=== PATIENT | male | born 1980 | race Caucasian/White ===

== ENCOUNTER 2019-10-31 13:15 | Inpatient (IN) | payer BC ==
--- NOTE | 2019-10-31 13:24 | PDOC ---
Rapid Medical Evaluation Time Seen by Provider: 10/31/19 13:17 Medical Evaluation: Allergies Allergy/AdvReac Type Severity Reaction Status Date / Time No Known Drug Allergies Allergy Verified 03/06/14 03:24 10/31/19 13:19 CC: increasing sob x 10 days, hx factor V and dvt. + chest tightness. 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
--- NOTE | 2019-10-31 13:30 | PDOC ---
History of Present Illness - General Chief Complaint: Shortness of Breath Stated Complaint: SOB Time Seen by Provider: 10/31/19 13:17 - History of Present Illness Initial Comments: 10/31/19 13:30 39 y/o afebrile male with PMH Factor V Leiden (on warfarin), > 10x of DVTs in the LLE (follows with Dr. George) presents with 10 days of worsening shortness of breath, and dry cough with occasional post tussive emessis. The shortness of breath have worsened so he came to the ER. Denies chest pain. Denies recent travel, surgery ROS GENERAL/CONSTITUTIONAL: No fever or chills. No weakness. HEAD, EYES, EARS, NOSE AND THROAT: No change in vision. No ear pain or discharge. No sore throat. CARDIOVASCULAR: No chest pain + shortness of breath RESPIRATORY: No cough, wheezing, or hemoptysis. GASTROINTESTINAL: No nausea, vomiting, diarrhea or constipation. GENITOURINARY: No dysuria, frequency, or change in urination. MUSCULOSKELETAL: No joint or muscle swelling or pain. No neck or back pain. SKIN: No rash NEUROLOGIC: No headache, vertigo, loss of consciousness, or change in strength/sensation. ENDOCRINE: No increased thirst. No abnormal weight change HEMATOLOGIC/LYMPHATIC: No anemia, easy bleeding, or history of blood clots. ALLERGIC/IMMUNOLOGIC: No hives or skin allergy. PE GENERAL: Awake, alert, and fully oriented, in no acute distress HEAD: No signs of trauma, normocephalic, atraumatic EYES: EOMI, sclera anicteric, conjunctiva clear ENT: oropharynx clear without exudates. Moist mucosa NECK: Normal ROM, supple LUNGS: No distress, speaks full sentences, clear to auscultation bilaterally HEART: Regular rate and rhythm, normal S1 and S2, no murmurs, rubs or gallops, peripheral pulses normal and equal bilaterally. ABDOMEN: Soft, nontender. No guarding, no rebound. No masses EXTREMITIES : Normal inspection, Normal range of motion, no edema. No clubbing or cyanosis. NEUROLOGICAL: Cranial nerves II through XII grossly intact. Normal speech, normal gait, no focal sensorimotor deficits SKIN: Warm, Dry, normal turgor, no rashes or lesions noted Assessment and Plan 39 y/o afebrile male with PMH Factor V Leiden (on warfarin), > 10x of DVTs in the LLE (follows with Dr. George) presents with 10 days of worsening shortness of breath, and dry cough with occasional post tussive emessis. Consider PE vs acs vs infectious - cbc, cmp, coags, ekg, cxr, CTA chest EKG: sinus tachycardia at 131bpm, wide complex, L axis, QTc 440 See attending discusssion wthi Dr. Gonzalez (cardiology), recommends adenosine to slow and identify rhythm Patinet given adenosine 6, 12,12 without change in rhythm Discussed case with Dr. Feldman who recommends trial of amiodarone Patient given Amiodarone without change in HR or rhythm CTA: No CT evidence of pulmonary embolism. Multichamber cardiomegaly is noted with interstitial pulmonary vascular congestion. Right middle lobe and right lower lobe alveolar opacities are seen which could be due to asymmetric pulmonary edema versus bacterial infiltrates. COVID-19 pneumonitis is less likely given peripheral sparing and an alveolar appearance rather than a typical groundglass appearance. Correlate clinically and with close follow-up radiography or CT. Mild nonspecific mediastinal and bilateral hilar lymphadenopathy is seen. Correlate clinically and with 3 month follow-up CT to document stability. Azithro and Ceftriaxone dosed Discussed case with Dr. Brunson who accepts pt for admission Jenniffer Cowart, PGY2 Emergency Medicine Past History - Medical History Allergies/Adverse Reactions: Allergies Allergy/AdvReac Type Severity Reaction Status Date / Time No Known Drug Allergies Allergy Verified 10/31/19 13:20 Home Medications: Ambulatory Orders Warfarin Sodium [Coumadin] 12 mg PO DAILY 03/08/12 Multivitamin [Multivitamins] 1 each PO DAILY 10/26/12 Anemia: No Asthma: No Cancer: No Cardiac Disorders: No CVA: No COPD: No CHF: No Dementia: No Diabetes: No GI Disorders: No Disorders: No HTN: No Hypercholesterolemia: No Liver Disease: No Seizures: No Thyroid Disease: No Other medical history: FACTOR V, DVT - Surgical History Abdominal Surgery: No Appendectomy: No Cardiac Surgery: No Cholecystectomy: No Lung Surgery: No Neurologic Surgery: No Orthopedic Surgery: Yes (rt knee sx, lt shoulder sx;rt hip sx) - Immunization History Immunization Up to Date: Yes - Psycho-Social/Smoking History Smoking Status: No Smoking History: Former smoker Have you smoked in the past 12 months: No Number of Cigarettes Smoked Daily: 10 Information on smoking cessation initiated: No 'Breaking Loose' booklet given: 10/24/11 - Substance Abuse Hx (Audit-C & DAST Scrn) How often the patient has a drink containing alcohol: Never Score: In Men: 4 or > Positive; In Women: 3 or > Positive: 0 Screen Result (Pos requires Nsg. Audit-10AR): Negative In the last yr the pt used illegal drug/Rx for NonMed reason: No Score: Yes response is considered Positive: 0 Screen Result (Positive result requires Nsg. DAST-10): Negative *Physical Exam - Vital Signs Last Vital Signs Temp Pulse Resp BP Pulse Ox 98.2 F 95 H 22 H 126/85 98 10/31/19 13:21 10/31/19 13:21 10/31/19 13:21 10/31/19 13:21 10/31/19 13:21 ED Treatment Course - LABORATORY CBC & Chemistry Diagram: 10/31/19 13:45 10/31/19 13:45 Discharge - Discharge Information Problems reviewed: Yes Clinical Impression/Diagnosis: Shortness of breath - Follow up/Referral - Patient Discharge Instructions - Post Discharge Activity
[2019-10-31] MEDS ORDERED: ADENOSINE 6 MG/2 ML VIAL IVPUSH ONE ×5 (14:18→14:46)
[2019-10-31 14:23] LABS: BASO % 1.2 % (0-2.0); EOS % 0.7 % (0-4.5); HEMATOCRIT 42.1 % (35.4-49); HEMOGLOBIN 13.8 GM/dL (11.7-16.9); LYMPH % 20.3 % (8-40); MCH 28.8 pg (25.7-33.7); MCHC 32.7 g/dl (32.0-35.9); MEAN PLT VOLUME 8.4 fl (7.5-11.1); MONO % 6.9 % (3.8-10.2); NEUT % 70.9 % (42.8-82.8); PLATELET COUNT 385 K/MM3 (134-434); RBC 4.78 M/mm3 (4.00-5.60); RDW 13.4 % (11.9-15.9); WHITE BLOOD COUNT 8.8 K/mm3 (4.0-10.0)
[2019-10-31 14:36] LABS: INR 3.99 (0.83-1.09); PROTHROMBIN TIME (PATIENT) 47.8 SEC (9.7-13.0)
[2019-10-31 14:50] LABS: ALBUMIN 3.5 g/dl (3.4-5.0); BILIRUBIN,TOTAL 1.3 mg/dL (0.2-1); BLOOD UREA NITROGEN 10.6 mg/dL (7-18); CALCIUM 9.3 mg/dL (8.5-10.1); CREATININE 0.9 mg/dL (0.55-1.3); MAGNESIUM 1.8 mg/dL (1.8-2.4); POTASSIUM 4.1 mmol/L (3.5-5.1); TOT PROT 6.9 g/dl (6.4-8.2)
[2019-10-31] MEDS ORDERED: AMIODARONE HCL 150 MG/3 ML VIAL IVPUSH ONE (15:03)
[2019-10-31 15:25] LABS: N-TERMINAL BNP 1695.9 pg/ml (5-125)
[2019-10-31] MEDS ORDERED: AMIODARONE HCL 150 MG/3 ML VIAL ONE (15:54)
[2019-10-31] MEDS ORDERED: AZITHROMYCIN IVPB 500 MG in DEXTROSE 5%-WATER - 250 ML IVPB ONE (16:31)
[2019-10-31] MEDS ORDERED: CEFTRIAXONE 1 GM/50 ML BAG ONE (16:38)
[2019-10-31] MEDS ORDERED: AZITHROMYCIN IVPB 500 MG/250 ML BAG IVPB ONE (16:39)
--- NOTE | 2019-10-31 16:50 | PDOC ---
Documentation entered by Wilfrido Negron SCRIBE, acting as scribe for Jamal Gill MD. Jamal Gill MD: This documentation has been prepared by the Migdalia ayala Xhesika, SCRIBE, under my direction and personally reviewed by me in its entirety. I confirm that the documentation accurately reflects all work, treatment, procedures, and medical decision making performed by me. Attending Attestation - Resident Resident Name: Jenniffer Cowart - ED Attending Attestation I have performed the following: I have examined & evaluated the patient, The case was reviewed & discussed with the resident, I agree w/resident's findings & plan, Exceptions are as noted - HPI HPI: 10/31/19 13:57 The patient is a 39 y/o M with a PMH of Factor V Leiden (on warfarin), > 10x of DVTs in the LLE (follows with Dr. George) who presents to the ED with 10 days of worsening shortness of breath, and dry cough. Pt states his SOB has gotten worse, prompting his arrival to the ED. The patient denies chest pain and dizziness. Denies fever, chills, nausea, vomiting, and constipation. Denies dysuria, frequency, urgency and hematuria. Allergy: NKDA - Physicial Exam PE: 10/31/19 14:03 Vitals: Triage Vital signs reviewed General Appearance: no acute distress, well nourished well developed, Neck: Supple;No Nuchal rigidity Chest Wall: Nontender Cardiac: +tachy. no murmurs, no rubs, no gallops, Lungs: Clear to auscultation bilateral, good air movement bilaterally, Abdomen: Soft, nondistended, normal bowel sounds, nontender to palpation Extremities: Full range of motion to all extremities, no cyanosis, clubbing, or edema Skin: Warm and dry, no rashes or lesions, no petechiae Psych: normal mood, normal affect - Critical Care Time Total Critical Care Time: 35 Critical Care Statement: The care of this patient involved high complexity decision making to prevent further life threatening deterioration of the pa tient's condition and/or to evaluate & treat vital organ system(s) failure or risk of failure. - Medical Decision Making 10/31/19 16:48 39 y/o M with a PMH of Factor V Leiden (on warfarin), > 10x of DVTs in the LLE (follows with Dr. George) who presents to the ED with 10 days of worsening shortness of breath, and dry cough. EKG demonstrates tachycardia fixed rate 128 likely P waves however wide complex in nature adenosine given x3 with no change Cardiology has been consulted Decision made to avoid calcium channel blockers and beta-blockers given wide-complex dysrhythmia Case discussed with cardiology recommends amiodarone 150 CTA demonstrates cardiomegaly right middle lobe and right lower lobe alveolar opacities less likely groundglass opacities Given atrial tachycardia versus a flutter which did not break with adenosine which is wide-complex in nature patient require admission for cardiology consultation, Dr. Feldman Recommends amiodarone and admission for further management. Discharge - Discharge Information Problems reviewed: Yes Clinical Impression/Diagnosis: Shortness of breath Condition: Guarded Disposition: [facility] - Follow up/Referral - Patient Discharge Instructions - Post Discharge Activity
[2019-10-31 17:05] LABS: EPI CELLS 3 /uL (0-25.1); HYALINE CASTS 1 /uL (0-3.1); PH,URINE 5.5 (5.0-8.0); URINE APPEARANCE CLEAR; URINE BACTERIA 17 /uL (0-1359); URINE BILIRUBIN NEGATIVE (NEGATIVE); URINE COLOR YELLOW; URINE GLUCOSE (UA) NEGATIVE (NEGATIVE); URINE KETONE NEGATIVE (NEGATIVE); URINE LEUK ESTERASE NEGATIVE (NEGATIVE); URINE NITRITE NEGATIVE (NEGATIVE); URINE PROTEIN 3+ (NEGATIVE); URINE RBC 70 /uL (0-23.9); URINE UROBILINOGEN 0.2 mg/dL (0.2-1.0); URINE WBC 7 /uL (0-25.8)
[2019-10-31 18:21] LABS: COCAINE, UR NEGATIVE ng/ml (CUTOFF=300); METHADONE, UR NEGATIVE ng/ml (CUTOFF=300); OPIATES, URI NEGATIVE ng/ml (CUTOFF=300); PHENCYCLIDINE,URINE NEGATIVE ng/ml (CUTOFF=25); URINE AMPHETAMINES NEGATIVE ng/ml (CUTOFF=500); URINE BARBITURATES NEGATIVE ng/ml (CUTOFF=200)
[2019-10-31 18:24] LABS: URINE BENZODIAZEPINES NEGATIVE ng/ml (CUTOFF=200)
--- NOTE | 2019-10-31 18:51 | HP ---
Admitting History and Physical - Admission Chief Complaint: Acute shortness of breath and tightness in the chest History of Present Illness: This 84 yr old w/m with PMH of factor V Leiden (on warfarin), >10x DVT of the left lower leg admitted via ER with an acute shortness of breath, tightness in the chest, and dry cough which have been gradually getting worse for past 10 days. 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: No: Alzheimer's, CVA, Dementia, Migraine, Multiple Sclerosis, Peripheral Neuropathy, Parkinson's, Seizure, Syncope, TIA, Vertigo, Other Cardiovascular: Yes: Other (atrial flutter with 2:1 AV conduction) Pulmonary: No: Asthma, Bronchitis, Cancer, COPD, O2 Dependent, Pneumonia, Previously Intubated, Pulmonary Embolus, Pulmonary Fibrosis, Sleep Apnea, Other Gastrointestinal: No: Ascites, Cancer, Constipation, Crohn's Disease, Diver ticulitis, Diverticulosis, Esophageal Varices, Gastritis, GERD, GI Bleed, Hemorrhoids, Hiatal Hernia, Inflamatory Bowel Disease, Irritable Bowel Disease, Pancreatitis, Peptic Ulcer Disease, Ulcerative Colitis, Other Hepatobiliary: No: Cirrhosis, Cholelithiasis, Cholecystitis, Choledocholithiasis, Hepatitis A, Hepatitis B, Hepatitis C, Other Renal/: Yes: Renal Calculi Heme/Onc: Yes: Hypercoaguable State (Factor V Leiden) Infectious Disease: No: AIDS, C-Diff, Herpes Zoster, HIV, MRSA, STD's, Tub erculosis, VREF, Other Psych: No: Addictions, Anxiety, Bipolar, Depression, Panic, Psychosis, Schizophrenia, Other Rheumatology: No: Fibromyalgia, Gout, Lupus, Rheumatoid Arthritis, Sarcoidosis, Vasculitis, Other ENT: No: Allergic Rhinitis, Sinusitis, Other Endocrine: No: Genaro's Disease, Kristy's Disease, Diabetes Insipidus, Diabetes Mellitus, Hyperparathyroidism, Hyperthyroidism, Hypothyroidism, Osteopenia, SIADH, Other Dermatology: No: Basal Cell, Cellulitis, Eczema, Melanoma, Psoriasis, Squamous Cell, Other - Past Surgical History Past Surgical History: Yes: None - Smoking History Smoking history: Former smoker Have you smoked in the past 12 months: No Aproximately how many cigarettes per day: 10 - Alcohol/Substance Use Hx Alcohol Use: No - Social History Usual Living Arrangement: Yes: With Spouse Home Medications - Allergies Allergies/Adverse Reactions: Allergies Allergy/AdvReac Type Severity Reaction Status Date / Time No Known Drug Allergies Allergy Verified 10/31/19 13:20 - Home Medications Home Medications: Ambulatory Orders Warfarin Sodium [Coumadin] 12 mg PO DAILY 03/08/12 Multivitamin [Multivitamins] 1 each PO DAILY 10/26/12 Review of Systems - Review of Systems Constitutional: reports: No Symptoms Eyes: reports: No Symptoms HENT: reports: No Symptoms Neck: reports: No Symptoms Cardiovascular: reports: Palpitations, Other Respiratory: reports: Cough Gastrointestinal: reports: No Symptoms Genitourinary: reports: No Symptoms Breasts: reports: No Symptoms Reported Musculoskeletal: reports: No Symptoms Integumentary: reports: No Symptoms Neurological: reports: No Symptoms Endocrine: reports: No Symptoms Hematology/Lymphatic: reports: No Symptoms Psychiatric: reports: Anxiety Physical Examination Vital Signs: Vital Signs Temperature 98.2 F 10/31/19 13:21 Pulse Rate 128 H 10/31/19 16:07 Respiratory Rate 22 H 10/31/19 16:07 Blood Pressure 123/79 10/31/19 16:07 O2 Sat by Pulse Oximetry (%) 95 10/31/19 16:07 Constitutional: Yes: Well Nourished, Anxious, Mild Distress Eyes: Yes: Conjunctiva Clear, EOM Intact HENT: Yes: Atraumatic, Normocephalic Neck: Yes: Supple, Trachea Midline Cardiovascular: Yes: Pulse Irregular (atrial flutter) Respiratory: Yes: Regular, CTA Bilaterally, On Nasal O2 Gastrointestinal: Yes: Normal Bowel Sounds, Soft ...Rectal Exam: Yes: Deferred Renal/: Yes: WNL Breast(s): Yes: WNL Extremities: Yes: Other (DVT left lower leg) Edema: No Peripheral Pulses WNL: Yes Integumentary: Yes: WNL Neurological: Yes: WNL ...Motor Strength: WNL Psychiatric: Yes: Alert, Oriented Labs: CBC, BMP 10/31/19 13:45 10/31/19 13:45 Imaging - Results Chest X-ray: Report Reviewed Cat Scan: Report Reviewed EKG: Report Reviewed Other: Report Reviewed (lab data reviewed) Problem List - Problems (1) Tightness in chest Code(s): R07.89 - OTHER CHEST PAIN (2) Dry cough Code(s): R05 - COUGH (3) Factor V Leiden Code(s): D68.51 - ACTIVATED PROTEIN C RESISTANCE (4) Left leg DVT Code(s): I82.402 - ACUTE EMBOLISM AND THOMBOS UNSP DEEP VEINS OF L LOW EXTREM (5) Atrial flutter with rapid ventricular response Code(s): I48.92 - UNSPECIFIED ATRIAL FLUTTER (6) Pneumonia Code(s): J18.9 - PNEUMONIA, UNSPECIFIED ORGANISM (7) Shortness of breath Code(s): R06.02 - SHORTNESS OF BREATH Assessment/Plan Assessment/plan: acute shortness of breath, acute tightness in the chest, acute dry cough, acute Pneumonia, acute atrial flutter with 2:1 AV conduction with rapid ventricular response 131bpm, Factor V Leiden, DVT of the left lower leg; Warfarin, oxygen 3L/min via nasal cannula with sp02 95%, consult to ID and Cardiology, IV Azithromycin and Ceftriaxone, IV Adenosine and IV amiodarone, oral Ativan for anxiety.
[2019-10-31] MEDS ORDERED: LORazepam 2 MG TABLET PO PRN (19:19)
[2019-10-31] MEDS ORDERED: LORazepam 2 MG/ML SDV VIAL ONE (19:26)
[2019-11-01] MEDS ORDERED: FUROSEMIDE 40 MG/4 ML INJECTABLE VIAL IVPUSH ONE ×2 (03:29→05:24)
--- NOTE | 2019-11-01 03:45 | CONSULT ---
Consultation: REQUESTING PROVIDER: Dr. Cortez CONSULT REQUEST: We have been asked to medically evaluate this patient for tachycardia. HISTORY OF PRESENT ILLNESS: 39 y/o M PMHx Factor V Leiden (on Warfarin), >10 DVT, ?AFlutter w/ 2:1 block presents with SOB and chest tightness x 10 days. 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 He continued to work and since onset, his SOB and tightness have worsened. he has tried his father in laws Albuterol inhaler and some OTC meds, both with minimal relief. Today, he felt his breathing was more labored prompting him to visit [facility]. Additionally complains of night sweats, posttussive emesis, fatigue, nonproductive cough. Denies any fevers, chills, diarrhea, constipation, headache, dysuria, hematuria. PMHx: As Above PSHX: Multiple orthopedic sx (Right knee x 13, Right Hip, Right Wrist, Left Shoulder), Multiple LLE Vascular sx (Follows with Dr. Ambrosio, Also had vessel removal), Left renal Calculi Allergies: NKDA FHx: Father with HTN, DM. Mother with HTN, DM, NAFLD Tobacco: 1ppd from ages [age]. 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 Ambulation: without assistance Residence: Home with and 4 year old child ED Course: Ativan 2mg x1, IV Adenosine (6mg followed by 12mg and again 12mg), IV Amiodarone 150mg, Ceftriaxone/Azithromycin REVIEW OF SYSTEMS: As per HPI PHYSICAL EXAMINATION Vital Signs - 24 hr 10/31/19 10/31/19 10/31/19 13:21 14:49 14:57 Temperature 98.2 F Pulse Rate 95 H Pulse Rate [ 129 H 129 H Apical] Pulse Rate [ Left Radial] Respiratory 22 H 17 17 Rate Blood Pressure 126/85 Blood Pressure 131/88 121/92 [Right Arm] O2 Sat by Pulse 98 99 99 Oximetry (%) 10/31/19 10/31/19 10/31/19 16:07 18:58 19:30 Temperature Pulse Rate Pulse Rate [ 128 H 128 H Apical] Pulse Rate [ 132 H Left Radial] Respiratory 22 H 22 H 24 H Rate Blood Pressure Blood Pressure 123/79 118/70 126/108 H [Right Arm] O2 Sat by Pulse 95 100 98 Oximetry (%) 10/31/19 10/31/19 11/01/19 21:30 23:30 01:30 Temperature Pulse Rate Pulse Rate [ Apical] Pulse Rate [ 130 H 128 H 92 H Left Radial] Respiratory 40 H 32 H Rate Blood Pressure Blood Pressure 107/77 124/75 93/83 [Right Arm] O2 Sat by Pulse 95 95 88 L Oximetry (%) 11/01/19 02:02 Temperature 98.6 F Pulse Rate Pulse Rate [ Apical] Pulse Rate [ 131 H Left Radial] Respiratory 28 H Rate Blood Pressure Blood Pressure 105/76 [Right Arm] O2 Sat by Pulse 97 Oximetry (%) GENERAL: A&Ox3, NAD HEAD: NCAT EYES: PERRL, EOMI ENT: Oropharynx clear without exudates. Moist mucous membranes. NECK: No JVD LUNGS: Diminished breath sounds at the bases, No wheezes, no crackles. HEART: Tachycardia, S1 S2 ABDOMEN: Obese, Soft, nontender, not distended, + bowel sounds, no guarding, no rebound MUSCULOSKELETAL: No CVA tenderness EXTREMITIES: No calf tenderness. LLE Chronic nonpitting edema. Multiple b/l LE surgical scars NEUROLOGICAL: Cranial nerves II-XII intact. Normal speech. Gross sensation intact throughout. 5/5 Muscle strength throughout. SKIN: Warm, dry Laboratory Results - last 24 hr 10/31/19 10/31/19 10/31/19 13:45 13:45 13:45 WBC 8.8 RBC 4.78 Hgb 13.8 Hct 42.1 MCV 88.0 MCH 28.8 MCHC 32.7 RDW 13.4 Plt Count 385 D MPV 8.4 Absolute Neuts (auto) 6.2 Neutrophils % 70.9 Lymphocytes % 20.3 D Monocytes % 6.9 Eosinophils % 0.7 D Basophils % 1.2 D Nucleated RBC % 0 PT with INR 47.80 H INR 3.99 H PTT (Actin FS) 40.0 H D-Dimer 1976 H Sodium Potassium Chloride Carbon Dioxide Anion Gap BUN Creatinine Est GFR (CKD-EPI)AfAm Est GFR (CKD-EPI)NonAf Random Glucose Calcium Magnesium Total Bilirubin AST ALT Alkaline Phosphatase Troponin I B-Natriuretic Peptide Total Protein Albumin TSH Urine Color Urine Appearance Urine pH Ur Specific Thompson Urine Protein Urine Glucose (UA) Urine Ketones Urine Blood Urine Nitrite Urine Bilirubin Urine Urobilinogen Ur Leukocyte Esterase Urine WBC (Auto) Urine RBC (Auto) Urine Casts (Auto) U Epithel Cells (Auto) Urine Bacteria (Auto) Opiates Screen Methadone Screen Barbiturate Screen Phencyclidine Screen Ur Amphetamines Screen MDMA (Ecstasy) Screen Benzodiazepines Screen Cocaine Screen U Marijuana (THC) Screen 10/31/19 10/31/19 10/31/19 13:45 15:16 16:20 WBC RBC Hgb Hct MCV MCH MCHC RDW Plt Count MPV Absolute Neuts (auto) Neutrophils % Lymphocytes % Monocytes % Eosinophils % Basophils % Nucleated RBC % PT with INR INR PTT (Actin FS) D-Dimer Sodium 139 Potassium 4.1 Chloride 104 Carbon Dioxide 22 Anion Gap 13 BUN 10.6 Creatinine 0.9 Est GFR (CKD-EPI)AfAm 125.13 Est GFR (CKD-EPI)NonAf 107.97 Random Glucose 114 H Calcium 9.3 Magnesium 1.8 Total Bilirubin 1.3 H AST 21 ALT 24 Alkaline Phosphatase 81 Troponin I 0.02 B-Natriuretic Peptide 1695.9 H Total Protein 6.9 Albumin 3.5 TSH 1.28 Urine Color Yellow Urine Appearance Clear Urine pH 5.5 Ur Specific Thompson 1.037 H Urine Protein 3+ H Urine Glucose (UA) Negative Urine Ketones Negative Urine Blood 2+ H Urine Nitrite Negative Urine Bilirubin Negative Urine Urobilinogen 0.2 Ur Leukocyte Esterase Negative Urine WBC (Auto) 7 Urine RBC (Auto) 70 Urine Casts (Auto) 1 U Epithel Cells (Auto) 3 Urine Bacteria (Auto) 17 Opiates Screen Negative Methadone Screen Negative Barbiturate Screen Negative Phencyclidine Screen Negative Ur Amphetamines Screen Negative MDMA (Ecstasy) Screen Negative Benzodiazepines Screen Negative Cocaine Screen Negative U Marijuana (THC) Screen Negative Active Medications Generic Name Dose Route Start Last Admin Trade Name Freq PRN Reason Stop Dose Admin Furosemide 40 mg 11/01/19 03:29 Lasix Injection - IVPUSH 11/01/19 03:30 ONCE ONE Lorazepam 2 mg 10/31/19 19:19 10/31/19 19:34 Ativan PO 2 mg Q12H PRN Administration ANXIETY Warfarin Sodium 10 mg/ 12 mg 11/01/19 18:00 Warfarin Sodium 2 mg PO DAILY@1800 [facility] ASSESSMENT/PLAN: 39 y/o M PMHx Factor V Leiden (on Warfarin), >10 DVT, AFlutter w/ 2:1 block presents with SOB and chest tightness x 10 days. Neuro -Stable Cardio #SOB + Chest Tightness -Likely due to CHF exacerbation in the setting of Tachyarrhythmia -As per ED Note and their discussion with Cardiology regarding Sinus tachycardia with ?wide complex QRS, patient was trialed on IV Adenosine (6mg followed by 12mg and again 12mg) and IV Amiodarone 150mg however his tachycardia persists -2nd EKG done on 10/31 @ 2:51am reveals Sinus tachycardia and appears unchanged from prior -CXR reveals Cardiomegaly, diffuse congestion in the setting of elevated BNP -CTA Does not reveal PE however unable to r/o bacterial infiltrates -Given 1 dose ceftriaxone/azithro in ED. Further ABx as per ID. -urinated ~1L after stat Lasix IV 40mg x 1 -Cardizem IV 10mg x1 -Case discussed with Dr. Bermudez who recommends 2nd dose Lasix, Starting Carvedilol 6.25mg, and ACEi/ARB as hemodynamics permit -Monitor I&Os, Urine output, Daily wieghts -Echo -Trop 0.02, 0.03 Heme #Hx of Factor V Leiden -Continue Warfarin -Daily INR FEN -No standing Fluids -Replete lytes PRN -Regular Diet PPx -DVT: Warfarin Dispo: Patient dose not require ICU level of care at this time. Monitor on Tele. We will continue to follow the patient. Thank you for this consultative opportunity. Visit type - Emergency Visit Emergency Visit: Yes ED Registration Date: 10/31/19 Care time: The patient presented to the Emergency Department on the above date and was hospitalized for further evaluation of their emergent condition. - New Patient This patient is new to me today: Yes Date on this admission: 11/01/19 - Critical Care Critical Care patient: No ATTENDING PHYSICIAN STATEMENT I saw and evaluated the patient. I reviewed the resident's note and discussed the case with the resident. I agree with the resident's findings and plan as documented. SUBJECTIVE: OBJECTIVE: ASSESSMENT AND PLAN:
[2019-11-01] MEDS ORDERED: dilTIAZem HCL 50 MG/10 ML - 10 ML VIAL IVPUSH ONE (04:09)
[2019-11-01] MEDS ORDERED: CARVEDILOL 3.125 MG TABLET (FP) ONE (06:19)
[2019-11-01] MEDS ORDERED: FUROSEMIDE 40 MG/4 ML INJECTABLE VIAL ONE (06:19)
[2019-11-01] MEDS: CARVEDILOL 6.25 MG TABLET (FP) PO SCH ×3 (06:21→21:06)
[2019-11-01] MEDS ORDERED: WARFARIN NA 10 MG TABLET PO SCH ×2 (08:00→11:00)
--- NOTE | 2019-11-01 08:40 | PN ---
Progress Note, Physician Chief Complaint: Patient seen and examined at the bedside, tachyarrhythmia treated with IV Diltiazem, shortness of breath and tightness in chest diminished. History of Present Illness: This 39 yr old w/m with PMH of DVT of the left lower leg, Factor V Leiden admitted via ER with an acute shortness of breath, tightness in chest, dry cough, ?Pneumonia, Cardiomegaly, and acute exacerbation of CHF. - Current Medication List Current Medications: Active Medications Carvedilol (Coreg -) 6.25 mg PO BID [facility] Last Admin: 11/01/19 06:21 Dose: 6.25 mg Documented by: Lorazepam (Ativan) 2 mg PO Q12H PRN PRN Reason: ANXIETY Last Admin: 10/31/19 19:34 Dose: 2 mg Documented by: Warfarin Sodium 10 mg/ (Warfarin Sodium 2 mg) 12 mg PO DAILY@1800 [facility] - Objective Vital Signs: Vital Signs Temperature 98.8 F 11/01/19 05:57 Pulse Rate 128 H 11/01/19 05:55 Respiratory Rate 18 11/01/19 05:55 Blood Pressure 109/79 11/01/19 05:55 O2 Sat by Pulse Oximetry (%) 98 11/01/19 05:55 Constitutional: Yes: Well Nourished, No Distress, Calm, Mild Distress Eyes: Yes: Conjunctiva Clear, EOM Intact HENT: Yes: Atraumatic, Normocephalic Neck: Yes: Supple, Trachea Midline Cardiovascular: Yes: Regular Rate and Rhythm, Tachycardia Respiratory: Yes: Regular, CTA Bilaterally Gastrointestinal: Yes: Normal Bowel Sounds, Soft ...Rectal Exam: Yes: Deferred Genitourinary: Yes: WNL Breast(s): Yes: WNL Musculoskeletal: Yes: WNL Extremities: Yes: Other (DVT of left lower leg) Edema: No Peripheral Pulses WNL: Yes Integumentary: Yes: WNL Neurological: Yes: WNL ...Motor Strength: WNL Psychiatric: Yes: WNL Labs: CBC, BMP 10/31/19 13:45 10/31/19 13:45 INR, PTT INR 3.99 (0.83-1.09) H 10/31/19 13:45 - ....Imaging Other: Report Reviewed (lab data reviewed) Problem List - Problems (1) Tightness in chest Code(s): R07.89 - OTHER CHEST PAIN (2) Dry cough Code(s): R05 - COUGH (3) Factor V Leiden Code(s): D68.51 - ACTIVATED PROTEIN C RESISTANCE (4) Left leg DVT Code(s): I82.402 - ACUTE EMBOLISM AND THOMBOS UNSP DEEP VEINS OF L LOW EXTREM (5) Atrial flutter with rapid ventricular response Code(s): I48.92 - UNSPECIFIED ATRIAL FLUTTER (6) Pneumonia Code(s): J18.9 - PNEUMONIA, UNSPECIFIED ORGANISM (7) Shortness of breath Code(s): R06.02 - SHORTNESS OF BREATH Assessment/Plan Assessment/plan: acute tachyarrhythmia, acute exacerbation of CHF, Cardiomegaly, acute ?Pneumonia, DVT left lower leg (on coumadin), Factor V Leiden; Warfarin 12 mg po daily, echocardiogram pending, IV Azithromycin and Ceftriaxone, consult to ID pending, IV Furosemide, Coreg 6.25 po bid, Amiodarone, Diltiazem, Adenosine, transfer to telemetry.
--- NOTE | 2019-11-01 10:04 | CON.CARD ---
Consult Consult Specialty:: Cardiology Referred by:: Cesar Damon Reason for Consultation:: Cardiac evaluation - History of Present Illness Chief Complaint: Generalized weakness, shortness of breath, arrhythmia History of Present Illness: Patient is a 39 year old male with underlying history of Factor V Leiden (on an ticoagulation with Warfarin), history of DVT on multiple occasions, possible notion of atrial flutter (last ECG from March 2014 in [facility] was sinus rhythm) who presented with sudden onset of shortness of breath and chest tightness. Patient was given Adenosine without any result. He was also given Amiodarone bolus but still has wide complex tachycardia which appears to be left bundle pattern with presence of p waves suggestive of sinus tachycardia. He complains of being tired and fatigued. CT chest was reported negative for pulmonary embolism, but was reported right middle and lower lobe infiltrates. He denies fever or chills. He denies nausea, vomiting, diarrhea or abdominal pain. He denies headache or lightheadedness. - History Source History Provided By: Patient, Medical Record Limitations to Obtaining History: No Limitations - Past Medical History Cardio/Vascular: Yes: Other (? atrial flutter with 2:1 AV conduction) Renal/: Yes: Renal Calculi Additional Medical History: Factor V Leiden - Past Surgical History Past Surgical History: Yes: Joint Replacement Additional Surgical History: Multiple orthopedic surgeries including right knee, right hip, right wrist, left shoulder. Vascular surgery LLE - Alcohol/Substance Use Hx Alcohol Use: Yes (Social) History of Substance Use: reports: None - Smoking History Smoking history: Former smoker Have you smoked in the past 12 months: No Aproximately how many cigarettes per day: 10 Home Medications - Allergies Allergies/Adverse Reactions: Allergies Allergy/AdvReac Type Severity Reaction Status Date / Time No Known Drug Allergies Allergy Verified 10/31/19 13:20 - Home Medications Home Medications: Ambulatory Orders Warfarin Sodium [Coumadin] 12 mg PO DAILY 03/08/12 Multivitamin [Multivitamins] 1 each PO DAILY 10/26/12 Family Medical History Family Hx Cardiac Disorders: Mother (HTN), Father (HTN) Family Hx Diabetes: Mother, Father Review of Systems - Review of Systems Constitutional: denies: Chills, Fever Cardiovascular: reports: Chest Pain, Shortness of Breath. denies: Palpitations Respiratory: reports: Cough, SOB. denies: Hemoptysis, Orthopnea, PND Gastrointestinal: denies: Abdominal Pain, Constipation, Diarrhea, Melena, Nausea, Rectal Bleeding, Vomiting Genitourinary: denies: Dysuria, Hematuria Musculoskeletal: denies: Back Pain, Joint Pain Neurological: reports: Weakness. denies: Dizziness, Headache, Seizure, Syncope Vital Signs: Vital Signs Temperature 98.8 F 11/01/19 05:57 Pulse Rate 128 H 11/01/19 05:55 Respiratory Rate 18 11/01/19 05:55 Blood Pressure 109/79 11/01/19 05:55 O2 Sat by Pulse Oximetry (%) 98 11/01/19 05:55 Eyes: Yes: PERRL HENT: Yes: Atraumatic Neck: Yes: Supple Respiratory: Yes: Diminished Gastrointestinal: Yes: Normal Bowel Sounds, Soft. No: Tenderness Cardiovascular: Yes: Tachycardia JVD: No PMI: Non-Displaced Heart Sounds: Yes: S1, S2 Edema: No - Other Data Labs, Other Data: CBC, BMP 10/31/19 13:45 10/31/19 13:45 INR, PTT INR 3.99 (0.83-1.09) H 10/31/19 13:45 Troponin, BNP 10/31/19 11/01/19 13:45 03:48 Troponin I 0.02 0.03 B-Natriuretic Peptide 1695.9 H Laboratory Results - last 24 hr 10/31/19 10/31/19 10/31/19 13:45 13:45 13:45 WBC 8.8 RBC 4.78 Hgb 13.8 Hct 42.1 MCV 88.0 MCH 28.8 MCHC 32.7 RDW 13.4 Plt Count 385 D MPV 8.4 Absolute Neuts (auto) 6.2 Neutrophils % 70.9 Lymphocytes % 20.3 D Monocytes % 6.9 Eosinophils % 0.7 D Basophils % 1.2 D Nucleated RBC % 0 PT with INR 47.80 H INR 3.99 H PTT (Actin FS) 40.0 H D-Dimer 1976 H Sodium Potassium Chloride Carbon Dioxide Anion Gap BUN Creatinine Est GFR (CKD-EPI)AfAm Est GFR (CKD-EPI)NonAf Random Glucose Calcium Magnesium Total Bilirubin AST ALT Alkaline Phosphatase Troponin I B-Natriuretic Peptide Total Protein Albumin TSH Urine Color Urine Appearance Urine pH Ur Specific [place] Urine Protein Urine Glucose (UA) Urine Ketones Urine Blood Urine Nitrite Urine Bilirubin Urine Urobilinogen Ur Leukocyte Esterase Urine WBC (Auto) Urine RBC (Auto) Urine Casts (Auto) U Epithel Cells (Auto) Urine Bacteria (Auto) Opiates Screen Methadone Screen Barbiturate Screen Phencyclidine Screen Ur Amphetamines Screen MDMA (Ecstasy) Screen Benzodiazepines Screen Cocaine Screen U Marijuana (THC) Screen 10/31/19 10/31/19 10/31/19 13:45 15:16 16:20 WBC RBC Hgb Hct MCV MCH MCHC RDW Plt Count MPV Absolute Neuts (auto) Neutrophils % Lymphocytes % Monocytes % Eosinophils % Basophils % Nucleated RBC % PT with INR INR PTT (Actin FS) D-Dimer Sodium 139 Potassium 4.1 Chloride 104 Carbon Dioxide 22 Anion Gap 13 BUN 10.6 Creatinine 0.9 Est GFR (CKD-EPI)AfAm 125.13 Est GFR (CKD-EPI)NonAf 107.97 Random Glucose 114 H Calcium 9.3 Magnesium 1.8 Total Bilirubin 1.3 H AST 21 ALT 24 Alkaline Phosphatase 81 Troponin I 0.02 B-Natriuretic Peptide 1695.9 H Total Protein 6.9 Albumin 3.5 TSH 1.28 Urine Color Yellow Urine Appearance Clear Urine pH 5.5 Ur Specific [place] 1.037 H Urine Protein 3+ H Urine Glucose (UA) Negative Urine Ketones Negative Urine Blood 2+ H Urine Nitrite Negative Urine Bilirubin Negative Urine Urobilinogen 0.2 Ur Leukocyte Esterase Negative Urine WBC (Auto) 7 Urine RBC (Auto) 70 Urine Casts (Auto) 1 U Epithel Cells (Auto) 3 Urine Bacteria (Auto) 17 Opiates Screen Negative Methadone Screen Negative Barbiturate Screen Negative Phencyclidine Screen Negative Ur Amphetamines Screen Negative MDMA (Ecstasy) Screen Negative Benzodiazepines Screen Negative Cocaine Screen Negative U Marijuana (THC) Screen Negative 11/01/19 11/01/19 03:48 09:57 WBC RBC Hgb Hct MCV MCH MCHC RDW Plt Count MPV Absolute Neuts (auto) Neutrophils % Lymphocytes % Monocytes % Eosinophils % Basophils % Nucleated RBC % PT with INR 58.90 H INR PTT (Actin FS) D-Dimer Sodium Potassium Chloride Carbon Dioxide Anion Gap BUN Creatinine Est GFR (CKD-EPI)AfAm Est GFR (CKD-EPI)NonAf Random Glucose Calcium Magnesium Total Bilirubin AST ALT Alkaline Phosphatase Troponin I 0.03 B-Natriuretic Peptide Total Protein Albumin TSH Urine Color Urine Appearance Urine pH Ur Specific [place] Urine Protein Urine Glucose (UA) Urine Ketones Urine Blood Urine Nitrite Urine Bilirubin Urine Urobilinogen Ur Leukocyte Esterase Urine WBC (Auto) Urine RBC (Auto) Urine Casts (Auto) U Epithel Cells (Auto) Urine Bacteria (Auto) Opiates Screen Methadone Screen Barbiturate Screen Phencyclidine Screen Ur Amphetamines Screen MDMA (Ecstasy) Screen Benzodiazepines Screen Cocaine Screen U Marijuana (THC) Screen Sinus tachycardia with LBBB Echo: Pending Imaging - Results Chest X-ray: Report Reviewed (Diffuse consolidation/congestion) Cat Scan: Report Reviewed (CT Chest: No PTE, but with right middle and lower lobe infiltrates) EKG: Report Reviewed Problem List - Problems (1) Sinus tachycardia Code(s): R00.0 - TACHYCARDIA, UNSPECIFIED (2) LBBB (left bundle branch block) Code(s): I44.7 - LEFT BUNDLE-BRANCH BLOCK, UNSPECIFIED (3) Factor V Leiden Code(s): D68.51 - ACTIVATED PROTEIN C RESISTANCE (4) Pneumonia Code(s): J18.9 - PNEUMONIA, UNSPECIFIED ORGANISM (5) Shortness of breath Code(s): R06.02 - SHORTNESS OF BREATH (6) Tightness in chest Code(s): R07.89 - OTHER CHEST PAIN Assessment/Plan 1. Sinus tachycardia with underlying LBBB (new), does not appear to be atrial flutter at this time 2. Chest pain and shortness of breath suggests due to pulmonary infiltrates +/- rule out cardiomyopathy 3. Factor V Leiden on anticoagulation, ruled out for pulmonary embolism via radiology report 4. History of DVT PLAN: 1. Echocardiography to assess LV/RV and valvular function rule out systolic +/- diastolic dysfunction 2. Continue Carvedilol 6.25 mg BID and uptitrate 3. Continue Coumadin with INR follow up (keep 2-3) 4. Empiric antibiotics coverage 5. COVID testing pending 6. may be admitted to telemetry unit Guarded Further plans are to follow Ok Allison MD
--- NOTE | 2019-11-01 10:11 | EKG ---
Test Reason : Blood Pressure : / mmHG Vent. Rate : 130 BPM Atrial Rate : 130 BPM P-R Int : 136 ms QRS Dur : 146 ms QT Int : 332 ms P-R-T Axes : 050 -48 051 degrees QTc Int : 488 ms SINUS TACHYCARDIA POSSIBLE LEFT ATRIAL ENLARGEMENT LEFT AXIS DEVIATION LEFT BUNDLE BRANCH BLOCK ABNORMAL ECG WHEN COMPARED WITH ECG OF 06-MAR-2014 06:16, VENT. RATE HAS INCREASED BY 60 BPM LEFT BUNDLE BRANCH BLOCK IS NOW PRESENT Confirmed by Rosendo Parr MD ([id number]) on 11/01/2019 10:11:39 AM Referred By: Confirmed By:Rosendo Parr MD
[2019-11-01 10:15] LABS: PROTHROMBIN TIME (PATIENT) 58.9 SEC (9.7-13.0)
[2019-11-01 10:24] LABS: INR 4.91 (0.83-1.09)
--- NOTE | 2019-11-01 11:26 | PN ---
Teaching Attending Note Name of Resident: Joanne Wallace ATTENDING PHYSICIAN STATEMENT I saw and evaluated the patient. I reviewed the resident's note and discussed the case with the resident. I agree with the resident's findings and plan as documented. SUBJECTIVE: Pt seen and examined in the ED. Still in sinus tachycardia with dyspnea on ex ertion, nonproductive cough. No fevers recorded. COVID19 serology pending. OBJECTIVE: Vital Signs Period Temp Pulse Resp BP Sys/Torres Pulse Ox Last 24 Hr 98.2 F-98.8 F 92-132 17-40 93-131/68-108 88-100 Intake & Output 10/29/19 10/30/19 10/31/19 11/01/19 23:59 23:59 23:59 23:59 Output Total 3050 Balance -3050 Weight 133.81 kg Gen: ill appearing Heart: tachycardic, regular Lung: bibasilar rales Abd: soft, nontender Ext: no edema CBC, BMP 10/31/19 13:45 10/31/19 13:45 Active Medications Carvedilol (Coreg -) 6.25 mg PO BID [facility] Last Admin: 11/01/19 09:50 Dose: 6.25 mg Documented by: Lorazepam (Ativan) 2 mg PO Q12H PRN PRN Reason: ANXIETY Last Admin: 10/31/19 19:34 Dose: 2 mg Documented by: Warfarin Sodium 10 mg/ (Warfarin Sodium 2 mg) 12 mg PO DAILY@1800 [facility] ASSESSMENT AND PLAN: Pneumonia r/o COVID19 Factor V Leiden h/o DVT - empiric antibiotics - f/u cultures, serologies - O2 to keep SpO2 >90% - continue anticoagulation - echocardiogram - will follow
[2019-11-01] MEDS ORDERED: AZITHROMYCIN IVPB 500 MG/250 ML BAG IVPB ONE (12:01)
[2019-11-01] MEDS: AZITHROMYCIN IVPB 500 MG/250 ML BAG IVPB SCH (12:02)
[2019-11-01] MEDS: CEFTRIAXONE 1 GM in DEXTROSE 5%-WATER - 50 ML IVPB SCH (13:20)
[2019-11-01] MEDS ORDERED: CEFTRIAXONE 1 GM/50 ML BAG ONE (13:20)
--- NOTE | 2019-11-01 15:44 | PN ---
Progress Note (short form) - Note Progress Note: ID CONSULT DICTATED RML, RLL COMMUNITY ACQUIRED V. ATYPICAL PNEUMONIA R/O SEPSIS SECONDARY TO PNEUMONIA FACTOR V LEIDEN R/O COVID-19 AWAIT BC, SPUTUM C/S, LEGIONELLA/PNEUMOCOCCAL AG COVID-19 PCR EMPIRIC CEFTRIAXONE/ ZITHROMAX CARDIOLOGY AND PULMONARY F/U DISCUSSED WITH AT BEDSIDE IN ER
[2019-11-01] MEDS ORDERED: WARFARIN NA 10 MG, WARFARIN NA 2 MG PO SCH (18:00)
--- NOTE | 2019-11-01 18:29 | CONS ---
DATE OF CONSULTATION: DATE OF DICTATION: 11/01/2019 INFECTIOUS DISEASE CONSULTATION HISTORY OF PRESENT ILLNESS: This patient is a 39-year-old male with a history of factor V Leiden who was evaluated for pneumonia. History is obtained from the patient as well as his who was present at the time of examination in the emergency room. He was admitted to the hospital on October 31, 2019, with a 10-day history of worsening shortness of breath, dry cough, and chest discomfort. He presented to the emergency room where a chest x-ray and CAT scan of the chest showed a right middle lobe and right lower lobe infiltrate. CTA was negative for acute pulmonary embolism. He was empirically treated with Zithromax and ceftriaxone. At the present time, the patient is awake and alert. He complains of right-sided chest discomfort. He is slightly short of breath at rest on nasal cannula O2. He reports cough which is dry in nature. He denies any purulent sputum production or hemoptysis. He denies any ill contacts. He denies any known contacts with patients with Coronavirus. No recent travel. Denies recent antibiotic usage. He has had no recent hospital admissions. PAST MEDICAL HISTORY: Positive for factor V Leiden with recurrent deep venous thrombosis, nephrolithiasis. PAST SURGICAL HISTORY: Status post multiple orthopedic surgeries. ALLERGIES: No known allergies. MEDICATION: 1. Zithromax. 2. Ceftriaxone. 3. Coumadin. 4. Adenosine. 5. Amiodarone. 6. Coreg. 7. Diltiazem. 8. Ativan. 9. Lasix. SOCIAL HISTORY: The patient is a former smoker, lives at home with his significant other. No recent hospitalizations. SYSTEMS REVIEW: Neurologic: No loss of consciousness, seizure activity, focal weakness. Cardiac: As per HPI. Respiratory: As per HPI. Gastrointestinal: Negative vomiting or diarrhea. Genitourinary: Negative for urinary tract infection. LABORATORY DATA: White count 8.8, hematocrit 42.1, platelet count 386, INR 4.9, BUN 10, creatinine 0.9, total bilirubin 1.3, alkaline phosphatase 81, AST 21. Urinalysis 7 white cells. Toxicology screen negative. COVID-19 PCR is pending. Sputum culture is pending. Blood and sputum cultures pending. Urine legionella antigen pending. CAT scan of the chest shows a right middle lobe and right lower lobe alveolar infiltrate with mild nonspecific mediastinal and bilateral hilar lymphadenopathy. PHYSICAL EXAMINATION: General: On exam, he is awake, he is anxious appearing, he is supine in bed. His breathing is nonlabored on nasal cannula O2. Vital signs: Temperature 98.8, blood pressure 103/68, pulse 113, respirations 28 per minute. HEENT: Sclerae anicteric. Cardiovascular: Heart sounds S1, S2. Lungs: Few rhonchi bilaterally. No rhonchi, rales, or wheezing. Abdomen: Soft, nontender. Extremities: Negative for edema. IMPRESSION: 1. Right middle lobe/right lower lobe community acquired versus atypical pneumonia. 2. Rule out sepsis secondary to pneumonia. 3. Factor V Leiden. 4. Rule out COVID-19. Await sepsis workup. Empiric antibiotic coverage for community-acquired versus atypical pulmonary pathogens with Zithromax and ceftriaxone. Cardiology and pulmonary followups. Case was discussed with patient's present at the time of the examination. Thank you for the kind referral. NADYA ROACH M.D. [id number]
[2019-11-01] MEDS ORDERED: WARFARIN NA 5 MG TABLET ONE (18:32)
[2019-11-01] MEDS ORDERED: WARFARIN NA 1 MG TABLET ONE (18:32)
[2019-11-01] MEDS: LORazepam 1 MG TABLET PO PRN (21:07)
[2019-11-02 04:18] VITALS: BMI 39.5
[2019-11-02 06:14] LABS: HEMATOCRIT 42.2 % (35.4-49); HEMOGLOBIN 13.7 GM/dL (11.7-16.9); LYMPH % 24.9 % (8-40); MCH 28.4 pg (25.7-33.7); MCHC 32.4 g/dl (32.0-35.9); MEAN CELL VOLUME 87.7 fl (80-96); MEAN PLT VOLUME 8.1 fl (7.5-11.1); MONO % 7.3 % (3.8-10.2); NEUT % 62.8 % (42.8-82.8); PLATELET COUNT 398 K/MM3 (134-434); RBC 4.81 M/mm3 (4.00-5.60); RDW 13.9 % (11.9-15.9); WHITE BLOOD COUNT 9.2 K/mm3 (4.0-10.0)
[2019-11-02 06:39] LABS: ALBUMIN 3.1 g/dl (3.4-5.0); BLOOD UREA NITROGEN 16.6 mg/dL (7-18); CALCIUM 9.4 mg/dL (8.5-10.1); POTASSIUM 4.5 mmol/L (3.5-5.1); TOT PROT 6.7 g/dl (6.4-8.2)
[2019-11-02 06:48] LABS: CREATININE 1.1 mg/dL (0.55-1.3)
[2019-11-02 07:05] LABS: PROTHROMBIN TIME (PATIENT) 50.1 SEC (9.7-13.0)
--- NOTE | 2019-11-02 07:52 | PN ---
Progress Note, Physician History of Present Illness: pulmonary alert,comfortable,less dypneic,mild chest discomfort - Current Medication List Current Medications: Active Medications Carvedilol (Coreg -) 6.25 mg PO BID [facility] Last Admin: 11/01/19 21:06 Dose: 6.25 mg Documented by: Ceftriaxone Sodium 1 gm/ (Dextrose) 50 mls @ 100 mls/hr IVPB DAILY [facility]; Protocol Last Admin: 11/01/19 13:20 Dose: 100 mls/hr Documented by: Azithromycin (Zithromax 500mg Ivpb (Pre-Docked)) 500 mg in 250 mls @ 250 mls/hr IVPB DAILY [facility] Stop: 11/04/19 10:59 Last Admin: 11/01/19 12:02 Dose: 250 mls/hr Documented by: Lorazepam (Ativan -) 2 mg PO Q12H PRN PRN Reason: ANXIETY Last Admin: 11/01/19 21:07 Dose: 2 mg Documented by: Warfarin Sodium 10 mg/ (Warfarin Sodium 2 mg) 12 mg PO DAILY@1800 [facility] Last Admin: 11/01/19 18:41 Dose: 12 mg Documented by: - Objective Vital Signs: Vital Signs Temperature 98.4 F 11/02/19 06:00 Pulse Rate 118 H 11/02/19 06:00 Respiratory Rate 20 11/02/19 06:00 Blood Pressure 106/68 11/02/19 06:00 O2 Sat by Pulse Oximetry (%) 96 11/01/19 20:00 Constitutional: Yes: Calm, Obese Eyes: Yes: WNL HENT: Yes: WNL Neck: Yes: WNL Cardiovascular: Yes: Regular Rate and Rhythm, S1, S2 Respiratory: Yes: CTA Bilaterally Gastrointestinal: Yes: Normal Bowel Sounds, Soft, Abdomen, Obese Extremities: Yes: WNL Edema: No Labs: CBC, BMP 11/02/19 05:45 11/02/19 06:00 INR, PTT Problem List - Problems (1) Suspected 2019-nCoV infection Code(s): Z20.828 - CONTACT W AND EXPOSURE TO OTH VIRAL COMMUNICABLE DISEASES (2) Dry cough Code(s): R05 - COUGH (3) Factor V Leiden Code(s): D68.51 - ACTIVATED PROTEIN C RESISTANCE (4) Left leg DVT Code(s): I82.402 - ACUTE EMBOLISM AND THOMBOS UNSP DEEP VEINS OF L LOW EXTREM (5) Shortness of breath Code(s): R06.02 - SHORTNESS OF BREATH (6) Sinus tachycardia Code(s): R00.0 - TACHYCARDIA, UNSPECIFIED (7) Tightness in chest Code(s): R07.89 - OTHER CHEST PAIN Assessment/Plan ASSESSMENT AND PLAN: Pneumonia r/o COVID19 Factor V Leiden h/o DVT - empiric antibiotics - f/u cultures, serologies - O2 to keep SpO2 >90% - continue anticoagulation - echocardiogram pending - Inflammatory markers DR JONES
[2019-11-02 08:11] LABS: INR 4.18 (0.83-1.09)
--- NOTE | 2019-11-02 08:55 | PN ---
Progress Note, Physician Chief Complaint: Patient seen and examined at the bedside, shortness of breath, dry cough, oxygen 2L/min via nasal cannula with spo2 96%. History of Present Illness: This 39 yr old w/m with PMH of Factor V Leiden, >10x DVT of the left lower leg admitted via ER with an acute tachyarrhythma with RVR, acute shortness of breath, acute exacerbation of pulmonary vascular congestion, Cardiomegaly, and an acute right middle lobe and right lower lobe Pneumonia. - Current Medication List Current Medications: Active Medications Carvedilol (Coreg -) 6.25 mg PO BID [facility] Last Admin: 11/01/19 21:06 Dose: 6.25 mg Documented by: Ceftriaxone Sodium 1 gm/ (Dextrose) 50 mls @ 100 mls/hr IVPB DAILY [facility]; Protocol Last Admin: 11/01/19 13:20 Dose: 100 mls/hr Documented by: Azithromycin (Zithromax 500mg Ivpb (Pre-Docked)) 500 mg in 250 mls @ 250 mls/hr IVPB DAILY [facility] Stop: 11/04/19 10:59 Last Admin: 11/01/19 12:02 Dose: 250 mls/hr Documented by: Lorazepam (Ativan -) 2 mg PO Q12H PRN PRN Reason: ANXIETY Last Admin: 11/01/19 21:07 Dose: 2 mg Documented by: Warfarin Sodium 10 mg/ (Warfarin Sodium 2 mg) 12 mg PO DAILY@1800 [facility] Last Admin: 11/01/19 18:41 Dose: 12 mg Documented by: - Objective Vital Signs: Vital Signs Temperature 98.4 F 11/02/19 06:00 Pulse Rate 118 H 11/02/19 06:00 Respiratory Rate 20 11/02/19 06:00 Blood Pressure 106/68 11/02/19 06:00 O2 Sat by Pulse Oximetry (%) 96 11/01/19 20:00 Constitutional: Yes: Well Nourished, Calm, Mild Distress, Other (shortness of breath) Eyes: Yes: Conjunctiva Clear, EOM Intact HENT: Yes: Atraumatic, Normocephalic Neck: Yes: Supple, Trachea Midline Cardiovascular: Yes: Regular Rate and Rhythm, Tachycardia Respiratory: Yes: Regular, CTA Bilaterally, Diminished Gastrointestinal: Yes: Normal Bowel Sounds, Soft ...Rectal Exam: Yes: Deferred Genitourinary: Yes: WNL Breast(s): Yes: WNL Musculoskeletal: Yes: WNL Extremities: Yes: WNL Edema: No Peripheral Pulses WNL: Yes Integumentary: Yes: WNL Neurological: Yes: WNL ...Motor Strength: WNL Psychiatric: Yes: WNL Labs: CBC, BMP 11/02/19 05:45 11/02/19 06:00 INR, PTT INR 4.18 (0.83-1.09) H* 11/02/19 05:45 - ....Imaging Other: Report Reviewed (lab data reviewed) Problem List - Problems (1) Tightness in chest Code(s): R07.89 - OTHER CHEST PAIN (2) Dry cough Code(s): R05 - COUGH (3) Factor V Leiden Code(s): D68.51 - ACTIVATED PROTEIN C RESISTANCE (4) Left leg DVT Code(s): I82.402 - ACUTE EMBOLISM AND THOMBOS UNSP DEEP VEINS OF L LOW EXTREM (5) Atrial flutter with rapid ventricular response Code(s): I48.92 - UNSPECIFIED ATRIAL FLUTTER (6) Pneumonia Code(s): J18.9 - PNEUMONIA, UNSPECIFIED ORGANISM (7) Shortness of breath Code(s): R06.02 - SHORTNESS OF BREATH Assessment/Plan Assessment/plan: acute shortness of breath, acute dry cough, acute interstitial pulmonary vascular congestion, acute tachyarrhythmia multichamber cardiomegaly, acute right middle lobe and right lower lobe pneumonia, Factor V Leiden, >10x DVT of the left lower leg; Warfarin 12m po daily, IV Furosemide, echocardiogram pending, IV Azithromycin and Ceftriaxone as per ID, Coreg 6.25mg po bid.
[2019-11-02] MEDS ORDERED: FUROSEMIDE 40 MG/4 ML INJECTABLE VIAL IVPB ONE (09:00)
[2019-11-02] MEDS ORDERED: DEXTROSE 5%-WATER - 50 ML IVPB ONE (10:02)
[2019-11-02] MEDS ORDERED: cefTRIAXone SODIUM 1 GM VIAL ONE (10:02)
[2019-11-02] MEDS: CEFTRIAXONE 1 GM in DEXTROSE 5%-WATER - 50 ML IVPB SCH (10:12)
--- NOTE | 2019-11-02 10:23 | PN ---
Progress Note, Physician History of Present Illness: Shortness of breath, oxygen 2L/min via nasal cannula with spo2 96%. - Current Medication List Current Medications: Active Medications Carvedilol (Coreg -) 6.25 mg PO BID [facility] Last Admin: 11/01/19 21:06 Dose: 6.25 mg Documented by: Ceftriaxone Sodium 1 gm/ (Dextrose) 50 mls @ 100 mls/hr IVPB DAILY [facility]; Protocol Last Admin: 11/02/19 10:12 Dose: 100 mls/hr Documented by: Azithromycin (Zithromax 500mg Ivpb (Pre-Docked)) 500 mg in 250 mls @ 250 mls/hr IVPB DAILY [facility] Stop: 11/04/19 10:59 Last Admin: 11/01/19 12:02 Dose: 250 mls/hr Documented by: Lorazepam (Ativan -) 2 mg PO Q12H PRN PRN Reason: ANXIETY Last Admin: 11/01/19 21:07 Dose: 2 mg Documented by: Warfarin Sodium 10 mg/ (Warfarin Sodium 2 mg) 12 mg PO DAILY@1800 [facility] Last Admin: 11/01/19 18:41 Dose: 12 mg Documented by: - Objective Vital Signs: Vital Signs Temperature 97.7 F 11/02/19 09:44 Pulse Rate 123 H 11/02/19 09:44 Respiratory Rate 20 11/02/19 09:44 Blood Pressure 105/76 11/02/19 09:44 O2 Sat by Pulse Oximetry (%) 96 11/01/19 20:00 Constitutional: Yes: No Distress, Calm Neck: Yes: Supple Cardiovascular: Yes: Tachycardia Respiratory: Yes: Regular, Diminished, On Nasal O2 Gastrointestinal: Yes: Normal Bowel Sounds, Soft Genitourinary: Yes: Spencer Present Edema: Yes Edema: LLE: Trace, RLE: Trace Labs: CBC, BMP 11/02/19 05:45 11/02/19 06:00 INR, PTT INR 4.18 (0.83-1.09) H* 11/02/19 05:45 - ....Imaging EKG: Report Reviewed (Tele: ST) Assessment/Plan Problem List - Problems (1) Sinus tachycardia Code(s): R00.0 - TACHYCARDIA, UNSPECIFIED (2) LBBB (left bundle branch block) Code(s): I44.7 - LEFT BUNDLE-BRANCH BLOCK, UNSPECIFIED (3) Factor V Leiden Code(s): D68.51 - ACTIVATED PROTEIN C RESISTANCE (4) Pneumonia Code(s): J18.9 - PNEUMONIA, UNSPECIFIED ORGANISM (5) Shortness of breath Code(s): R06.02 - SHORTNESS OF BREATH (6) Tightness in chest Code(s): R07.89 - OTHER CHEST PAIN Assessment/Plan 1. Sinus tachycardia with underlying LBBB (new), does not appear to be atrial flutter at this time 2. Chest pain and shortness of breath suggests due to pulmonary infiltrates +/- rule out cardiomyopathy 3. Factor V Leiden on anticoagulation with supratherapeutic INR, ruled out for pulmonary embolism via radiology report 4. History of DVT PLAN: 1. Echocardiography to assess LV/RV and valvular function rule out systolic +/- diastolic dysfunction 2. Increase Carvedilol 12.5 mg BID and uptitrate as tolerated 3. Continue Coumadin with INR follow up (keep 2-3) 4. Empiric antibiotics coverage per C&S 5. COVID testing pending 6. Diuresis as tolerated with monitor diuretic response, renal fxn and electrolytes
--- NOTE | 2019-11-02 10:39 | EKG ---
Test Reason : Blood Pressure : / mmHG Vent. Rate : 131 BPM Atrial Rate : 262 BPM P-R Int : 000 ms QRS Dur : 138 ms QT Int : 298 ms P-R-T Axes : 074 -53 050 degrees QTc Int : 440 ms ATRIAL FLUTTER WITH 2:1 A-V CONDUCTION LEFT AXIS DEVIATION NON-SPECIFIC INTRA-VENTRICULAR CONDUCTION BLOCK ABNORMAL ECG WHEN COMPARED WITH ECG OF 06-MAR-2014 06:16, ATRIAL FLUTTER HAS REPLACED SINUS RHYTHM VENT. RATE HAS INCREASED BY 61 BPM QUESTIONABLE CHANGE IN QRS DURATION Confirmed by Rosendo Parr MD ([id number]) on 11/02/2019 10:38:55 AM Referred By: Confirmed By:Rosendo Parr MD
[2019-11-02] MEDS: CARVEDILOL 6.25 MG TABLET (FP) PO SCH (11:17)
[2019-11-02] MEDS: AZITHROMYCIN IVPB 500 MG/250 ML BAG IVPB SCH (11:44)
[2019-11-02] MEDS ORDERED: CARVEDILOL 12.5 MG TABLET (FP) PO SCH (12:30)
[2019-11-02] MEDS: CARVEDILOL 6.25 MG TABLET (FP) PO ONE ×2 (13:14→16:05)
--- NOTE | 2019-11-02 13:40 | PN ---
Progress Note, Physician Chief Complaint: AWAKE IN BED C/O DYSPNEA ON EXERTION DRY COUGH NO CHEST PAIN NO FEVER/ CHILLS AFEBRILE WBC WNL BC (-) SPUTUM NORMAL BRITTNEE LEGIONELLA AG(-) COVID-19 PENDING - Current Medication List Current Medications: Active Medications Carvedilol (Coreg -) 12.5 mg PO BID [facility] Ceftriaxone Sodium 1 gm/ (Dextrose) 50 mls @ 100 mls/hr IVPB DAILY [facility]; Protocol Last Admin: 11/02/19 10:12 Dose: 100 mls/hr Documented by: Azithromycin (Zithromax 500mg Ivpb (Pre-Docked)) 500 mg in 250 mls @ 250 mls/hr IVPB DAILY [facility] Stop: 11/04/19 10:59 Last Admin: 11/02/19 11:44 Dose: 250 mls/hr Documented by: Lorazepam (Ativan -) 2 mg PO Q12H PRN PRN Reason: ANXIETY Last Admin: 11/01/19 21:07 Dose: 2 mg Documented by: Warfarin Sodium 10 mg/ (Warfarin Sodium 2 mg) 12 mg PO DAILY@1800 [facility] Last Admin: 11/01/19 18:41 Dose: 12 mg Documented by: - Objective Vital Signs: Vital Signs Temperature 97.7 F 11/02/19 09:44 Pulse Rate 123 H 11/02/19 13:10 Respiratory Rate 20 11/02/19 09:44 Blood Pressure 102/60 11/02/19 13:10 O2 Sat by Pulse Oximetry (%) 95 11/02/19 09:00 Constitutional: Yes: No Distress Eyes: Yes: Conjunctiva Clear Cardiovascular: Yes: Regular Rate and Rhythm, S1, S2 Respiratory: Yes: Rhonchi Gastrointestinal: Yes: Normal Bowel Sounds, Soft Edema: No Labs: CBC, BMP 11/02/19 05:45 11/02/19 06:00 INR, PTT INR 4.18 (0.83-1.09) H* 11/02/19 05:45 Assessment/Plan RML,RLL [facility] ACQ V. ATYPICAL R/O COVID-19 FACTOR V LEIDEN AWAIT C/S, COVID PCR CONTINUE EMPIRIC CEFTRIAXONE/ ZITHROMAX AIRBORNE PRECAUTIONS PULMONARY F/U
[2019-11-02] MEDS ORDERED: FUROSEMIDE 40 MG/4 ML INJECTABLE VIAL IVPUSH ONE (13:56)
--- NOTE | 2019-11-02 14:00 | RAPID ---
Physical Examination Vital Signs: Vital Signs Temperature 97.7 F 11/02/19 09:44 Pulse Rate 123 H 11/02/19 13:10 Respiratory Rate 20 11/02/19 09:44 Blood Pressure 102/60 11/02/19 13:10 O2 Sat by Pulse Oximetry (%) 95 11/02/19 09:00 Labs: CBC, BMP 11/02/19 05:45 11/02/19 06:00 Rapid Response - Rapid Response Assessment: rapid response was called overhead. HARVESTING CONTRACTOR responded immediately, report from nurse was given that patient was diaphoretic and SOB. Pt says it is acutely worse since 11 after he ate. Pt describes it as chest tightness, denies pain, palpitations. Vitals PE diaphoretic, speaking full sentences, anxious appearing, tearful. + s1, s2, tachy, CTA BL, Vitals on arrivial of HARVESTING CONTRACTOR (13:37 PM) : HR 120, BP 90/62, O2 86% Vitals upon HARVESTING CONTRACTOR leaving: HR 123, BP 106/72, O2 99% Plan CXR stat Cardiac enzymes ekg reviewed - unchanged from prior Dr. Gonzalez notified and aware. 02 NC increased to 5 L titrate as tolerated Will check Phos and Mg
[2019-11-02 14:55] LABS: MAGNESIUM 2.2 mg/dL (1.8-2.4); PHOSPHOROUS 4.1 mg/dL (2.5-4.9)
--- NOTE | 2019-11-02 15:59 | ECHO ---
Version: 1 Name: DODIE ROTHMAN Exam: Adult Echocardiogram Study Date: 11/02/2019, 2:53 PM Age: 39 Years MMode/2D Measurements & Calculations IVSd: 0.75 cm LVIDs: 6.6 cm LVIDd: 7.5 cm LVPWd: 0.92 cm LAV (MOD-bp): 137.0 ml ACS: 2.47 cm Ao root diam: 3.7 cm LVOT diam: 2.6 cm LA dimension: 4.4 cm Doppler Measurements & Calculations MV E max indra: 111.1 cm/sec Med E/e': 21.2 Lat E/e': 4.3 Med Peak E' Indra: 5.2 cm/sec Lat Peak E' Indra: 25.9 cm/sec MR max P.3 mmHg Ao max P.39 mmHg SHOBHA(I,D): 3.3 cm Ao mean P.29 mmHg LV V1 mean: 33.9 cm/sec Ao V2 max: 77.4 cm/sec LV V1 mean P.52 mmHg TR max indra: 297.3 cm/sec TR max P.3 mmHg Procedure A complete two-dimensional transthoracic echocardiogram was performed (2D, M-mode, Doppler and color flow Doppler). Left Ventricle The left ventricle is moderately dilated. Left ventricular systolic function is severely reduced. Ej ection Fraction = 25%. There is severe global hypokinesis of the left ventricle. Thrombus can not be exclud ed. Right Ventricle The right ventricle is normal in size and function. Atria The left atrium is mildly dilated. Right atrial size is normal. Mitral Valve The mitral valve is normal in structure and function. There is moderate mitral regurgitation. Tricuspid Valve The tricuspid valve is normal in structure and function. There is mild to moderate tricuspid regurgi tation. Right ventricular systolic pressure is elevated at 62 mmhg. There is severe pulmonary hypertension. Aortic Valve The aortic valve is normal in structure and function. Trace to mild aortic regurgitation. Pulmonic Valve The pulmonic valve is normal in structure and function. Mild pulmonic valvular regurgitation. Great Vessels The aortic root is normal size. Pericardium/Pleura There is no pericardial effusion. There is no pleural effusion. Summary Statements There is severe global hypokinesis of the left ventricle. Left ventricular systolic function is severely reduced. Ejection Fraction = 25%. Thrombus can not be excluded. The left atrium is mildly dilated. There is moderate mitral regurgitation. There is mild to moderate tricuspid regurgitation. Right ventricular systolic pressure is elevated at 62 mmhg. There is severe pulmonary hypertension. Trace to mild aortic regurgitation. Mild pulmonic valvular regurgitation. MD Rosendo Parr 11/02/2019, 3:59 PM Ordering Physician: Joanne Santoyo Referring Physician: JOANNE SANTOYO Performed By: Ofelia Tipton
[2019-11-02] MEDS ORDERED: WARFARIN NA 10 MG TABLET ONE (17:30)
[2019-11-02] MEDS ORDERED: WARFARIN NA 2 MG TABLET ONE (17:30)
[2019-11-02] MEDS ORDERED: WARFARIN NA 10 MG, WARFARIN NA 2 MG PO SCH (18:00)
[2019-11-02] MEDS ORDERED: WARFARIN NA 5 MG TABLET PO SCH (18:00)
[2019-11-02] MEDS: CARVEDILOL 12.5 MG TABLET (FP) PO SCH (21:51)
[2019-11-02] MEDS: SACUBITRIL/VALSARTAN 24 MG-26 MG TABLET PO SCH (23:02)
[2019-11-02] MEDS: LORazepam 1 MG TABLET PO PRN (23:03)
[2019-11-03 06:45] LABS: BASO % 1.1 % (0-2.0); EOS % 3.3 % (0-4.5); HEMATOCRIT 41.6 % (35.4-49); HEMOGLOBIN 13.4 GM/dL (11.7-16.9); LYMPH % 27.1 % (8-40); MCH 28.2 pg (25.7-33.7); MCHC 32.2 g/dl (32.0-35.9); MEAN CELL VOLUME 87.5 fl (80-96); MEAN PLT VOLUME 8.1 fl (7.5-11.1); MONO % 7.5 % (3.8-10.2); PLATELET COUNT 395 K/MM3 (134-434); RBC 4.75 M/mm3 (4.00-5.60); RDW 13.7 % (11.9-15.9); WHITE BLOOD COUNT 7.8 K/mm3 (4.0-10.0)
--- NOTE | 2019-11-03 07:27 | PN ---
Progress Note, Physician History of Present Illness: PULMONARY EVENTS FROM LAST NIGHT NOTED,PT STILL C/O SOB,CHEST TIGHTNESS. ECHO SEVERE LV DYSFUNCTION,SEVERE PUL HTN - Current Medication List Current Medications: Active Medications Carvedilol (Coreg -) 12.5 mg PO BID [facility] Last Admin: 11/02/19 21:51 Dose: 12.5 mg Documented by: Ceftriaxone Sodium 1 gm/ (Dextrose) 50 mls @ 100 mls/hr IVPB DAILY [facility]; Protocol Last Admin: 11/02/19 10:12 Dose: 100 mls/hr Documented by: Azithromycin (Zithromax 500mg Ivpb (Pre-Docked)) 500 mg in 250 mls @ 250 mls/hr IVPB DAILY [facility] Stop: 11/04/19 10:59 Last Admin: 11/02/19 11:44 Dose: 250 mls/hr Documented by: Lorazepam (Ativan -) 2 mg PO Q12H PRN PRN Reason: ANXIETY Last Admin: 11/02/19 23:03 Dose: 2 mg Documented by: Sacubitril/Valsartan (Entresto 24 Mg-26 Mg Tablet) 1 tab PO BID [facility] Last Admin: 11/02/19 23:02 Dose: 1 tab Documented by: Warfarin Sodium (Coumadin -) 5 mg PO DAILY@1800 [facility] Last Admin: 11/02/19 17:55 Dose: 5 mg Documented by: - Objective Vital Signs: Vital Signs Temperature 97.8 F 11/03/19 06:00 Pulse Rate 104 H 11/03/19 06:00 Respiratory Rate 20 11/03/19 06:00 Blood Pressure 101/61 11/03/19 06:00 O2 Sat by Pulse Oximetry (%) 96 11/02/19 21:00 Constitutional: Yes: Calm, Obese Eyes: Yes: WNL HENT: Yes: WNL Neck: Yes: WNL Cardiovascular: Yes: Regular Rate and Rhythm, Tachycardia, S1, S2 Respiratory: Yes: Diminished Gastrointestinal: Yes: Normal Bowel Sounds, Soft Extremities: Yes: WNL Edema: No Labs: CBC, BMP 11/02/19 06:00 - ....Imaging Chest X-ray: Report Reviewed, Image Reviewed Problem List - Problems (1) Suspected 2019-nCoV infection Code(s): Z20.828 - CONTACT W AND EXPOSURE TO OTH VIRAL COMMUNICABLE DISEASES (2) Dry cough Code(s): R05 - COUGH (3) Factor V Leiden Code(s): D68.51 - ACTIVATED PROTEIN C RESISTANCE (4) Left leg DVT Code(s): I82.402 - ACUTE EMBOLISM AND THOMBOS UNSP DEEP VEINS OF L LOW EXTREM (5) Shortness of breath Code(s): R06.02 - SHORTNESS OF BREATH (6) Sinus tachycardia Code(s): R00.0 - TACHYCARDIA, UNSPECIFIED (7) Tightness in chest Code(s): R07.89 - OTHER CHEST PAIN Assessment/Plan ASSESSMENT AND PLAN: Pneumonia r/o COVID19 Factor V Leiden h/o DVT chf Severe lv dysfunction Severe Pul HTN - empiric antibiotics - O2 to keep SpO2 >90% - continue anticoagulation - Inflammatory markers - inhaled bronchodilators - marciano JONES
--- NOTE | 2019-11-03 08:47 | PN ---
Progress Note, Physician Chief Complaint: Patient seen and examined at the bedside, shortness of breath, dry cough, no chest tightness, palpitations. History of Present Illness: This 39 yr old w/m with PMH of Factor V Leiden, >10x DVT of left lower leg admitted via ER with an acute shortness of breath, dry cough, palpitations, chest tightness, and a tachyarrhythmia. - Current Medication List Current Medications: Active Medications Carvedilol (Coreg -) 12.5 mg PO BID [facility] Last Admin: 11/02/19 21:51 Dose: 12.5 mg Documented by: Ceftriaxone Sodium 1 gm/ (Dextrose) 50 mls @ 100 mls/hr IVPB DAILY [facility]; Protocol Last Admin: 11/02/19 10:12 Dose: 100 mls/hr Documented by: Azithromycin (Zithromax 500mg Ivpb (Pre-Docked)) 500 mg in 250 mls @ 250 mls/hr IVPB DAILY [facility] Stop: 11/04/19 10:59 Last Admin: 11/02/19 11:44 Dose: 250 mls/hr Documented by: Lorazepam (Ativan -) 2 mg PO Q12H PRN PRN Reason: ANXIETY Last Admin: 11/02/19 23:03 Dose: 2 mg Documented by: Sacubitril/Valsartan (Entresto 24 Mg-26 Mg Tablet) 1 tab PO BID [facility] Last Admin: 11/02/19 23:02 Dose: 1 tab Documented by: Warfarin Sodium (Coumadin -) 5 mg PO DAILY@1800 [facility] Last Admin: 11/02/19 17:55 Dose: 5 mg Documented by: - Objective Vital Signs: Vital Signs Temperature 97.8 F 11/03/19 06:00 Pulse Rate 104 H 11/03/19 06:00 Respiratory Rate 20 11/03/19 06:00 Blood Pressure 101/61 11/03/19 06:00 O2 Sat by Pulse Oximetry (%) 96 11/02/19 21:00 Constitutional: Yes: Well Nourished, Calm, Mild Distress (shortness of breath and dry cough) Eyes: Yes: Conjunctiva Clear, EOM Intact HENT: Yes: Atraumatic, Normocephalic Neck: Yes: Supple, Trachea Midline Cardiovascular: Yes: Regular Rate and Rhythm, Tachycardia Respiratory: Yes: Regular, CTA Bilaterally, Diminished, Rales Gastrointestinal: Yes: Normal Bowel Sounds, Soft ...Rectal Exam: Yes: Deferred Genitourinary: Yes: WNL Breast(s): Yes: WNL Musculoskeletal: Yes: WNL Extremities: Yes: Other (DVT of right lower leg) Edema: No Peripheral Pulses WNL: Yes Integumentary: Yes: WNL Neurological: Yes: WNL ...Motor Strength: WNL Psychiatric: Yes: WNL Labs: CBC, BMP 11/03/19 05:41 11/02/19 06:00 INR, PTT INR 4.18 (0.83-1.09) H* 11/02/19 05:45 - ....Imaging Other: Report Reviewed (lab data reviewed) Problem List - Problems (1) Tightness in chest Code(s): R07.89 - OTHER CHEST PAIN (2) Dry cough Code(s): R05 - COUGH (3) Factor V Leiden Code(s): D68.51 - ACTIVATED PROTEIN C RESISTANCE (4) Left leg DVT Code(s): I82.402 - ACUTE EMBOLISM AND THOMBOS UNSP DEEP VEINS OF L LOW EXTREM (5) Atrial flutter with rapid ventricular response Code(s): I48.92 - UNSPECIFIED ATRIAL FLUTTER (6) Pneumonia Code(s): J18.9 - PNEUMONIA, UNSPECIFIED ORGANISM (7) Shortness of breath Code(s): R06.02 - SHORTNESS OF BREATH Assessment/Plan Assessment/plan: acute tachyarrhythmia, acute shortness of breath, dry cough, tightness in the chest, DVT of left lower leg, Factor V Leiden, >10x DVT of left lower leg, Sacubitril//valsartan, Coreg, IV Furosemide for pulmonary vascular congestion, IV Azithromycin and Ceftriaxone for acute pneumonia, Warfarin for prevention of DVT of left lower leg.
[2019-11-03] MEDS ORDERED: cefTRIAXone SODIUM 1 GM VIAL ONE (09:07)
[2019-11-03] MEDS ORDERED: DEXTROSE 5%-WATER - 50 ML IVPB ONE (09:07)
--- NOTE | 2019-11-03 09:21 | PN ---
Progress Note, Physician History of Present Illness: Dyspneic and orthopneic yesterday afternoon requiring additional diuresis. Upon further question, has been symptomatic for 5 past weeks, denies flu symptoms. - Current Medication List Current Medications: Active Medications Carvedilol (Coreg -) 12.5 mg PO BID [facility] Last Admin: 11/02/19 21:51 Dose: 12.5 mg Documented by: Ceftriaxone Sodium 1 gm/ (Dextrose) 50 mls @ 100 mls/hr IVPB DAILY [facility]; Protocol Last Admin: 11/02/19 10:12 Dose: 100 mls/hr Documented by: Azithromycin (Zithromax 500mg Ivpb (Pre-Docked)) 500 mg in 250 mls @ 250 mls/hr IVPB DAILY [facility] Stop: 11/04/19 10:59 Last Admin: 11/02/19 11:44 Dose: 250 mls/hr Documented by: Lorazepam (Ativan -) 2 mg PO Q12H PRN PRN Reason: ANXIETY Last Admin: 11/02/19 23:03 Dose: 2 mg Documented by: Sacubitril/Valsartan (Entresto 24 Mg-26 Mg Tablet) 1 tab PO BID [facility] Last Admin: 11/02/19 23:02 Dose: 1 tab Documented by: Warfarin Sodium (Coumadin -) 5 mg PO DAILY@1800 [facility] Last Admin: 11/02/19 17:55 Dose: 5 mg Documented by: - Objective Vital Signs: Vital Signs Temperature 98.7 F 11/03/19 08:55 Pulse Rate 115 H 11/03/19 08:55 Respiratory Rate 20 11/03/19 08:55 Blood Pressure 107/73 11/03/19 08:55 O2 Sat by Pulse Oximetry (%) 96 11/02/19 21:00 Constitutional: Yes: No Distress, Calm Neck: Yes: Supple Cardiovascular: Yes: Regular Rate and Rhythm Respiratory: Yes: Regular, Diminished Gastrointestinal: Yes: Normal Bowel Sounds, Soft, Abdomen, Obese Extremities: Yes: Cool Edema: Yes Edema: LLE: Trace, RLE: Trace Labs: CBC, BMP 11/03/19 05:41 11/02/19 06:00 INR, PTT INR 4.18 (0.83-1.09) H* 11/02/19 05:45 - ....Imaging Chest X-ray: Report Reviewed (Right lung base opacity) Problem List - Problems (1) Acute on chronic systolic (congestive) heart failure Code(s): I50.23 - ACUTE ON CHRONIC SYSTOLIC (CONGESTIVE) HEART FAILURE Assessment/Plan 11/02/2019 Echo: Moderately dilated with severely decreased LVEF 25%, normal RV size and fxn, mild LAE, mod MR, mild-mod TR, RVSP 62 mmHg, mild VT, tr-mild AR. Problem List - Problems (1) Sinus tachycardia Code(s): R00.0 - TACHYCARDIA, UNSPECIFIED (2) LBBB (left bundle branch block) Code(s): I44.7 - LEFT BUNDLE-BRANCH BLOCK, UNSPECIFIED (3) Factor V Leiden Code(s): D68.51 - ACTIVATED PROTEIN C RESISTANCE (5) Shortness of breath Code(s): R06.02 - SHORTNESS OF BREATH (6) Tightness in chest Code(s): R07.89 - OTHER CHEST PAIN Assessment/Plan 1. Sinus tachycardia with underlying LBBB (new), does not appear to be atrial flutter at this time 2. Chest pain and shortness of breath referable to acute on chronic systolic heart failure 3. Factor V Leiden on anticoagulation with supratherapeutic INR, ruled out for pulmonary embolism via radiology report 4. History of DVT PLAN: 1. Echocardiography reviewed 2. Increase Carvedilol 25 mg BID, started Entresto / bid, eventual spir onolactone 25 qd and uptitrate as hemodynamics tolerate 3. Currently on Coumadin with INR follow up (keep 2-3), will have to hold for cath with bridging heparin gtt 4. D/c empiric antibiotics coverage as C&S NGTD 5. COVID testing negative 6. IV diuresis with monitor diuretic response, renal fxn and electrolytes 7. R&LHc once euvolemic to establish etiology of cardiomyopathy, Life[facility] prior to d/c, plan of care d/w patient and .
[2019-11-03] MEDS ORDERED: FUROSEMIDE 40 MG/4 ML INJECTABLE VIAL IVPUSH SCH (09:22)
[2019-11-03] MEDS: CARVEDILOL 12.5 MG TABLET (FP) PO SCH ×2 (09:29→22:14)
[2019-11-03] MEDS: SACUBITRIL/VALSARTAN 24 MG-26 MG TABLET PO SCH ×2 (09:29→22:14)
[2019-11-03] MEDS: CEFTRIAXONE 1 GM in DEXTROSE 5%-WATER - 50 ML IVPB SCH (09:29)
[2019-11-03] MEDS ORDERED: CARVEDILOL 25 MG TABLET (FP) PO SCH ×2 (09:30→22:00)
[2019-11-03] MEDS: AZITHROMYCIN IVPB 500 MG/250 ML BAG IVPB SCH (09:30)
[2019-11-03] MEDS ORDERED: WARFARIN NA 5 MG TABLET PO SCH ×3 (10:03→10:09)
[2019-11-03 11:20] LABS: INR 2.97 (0.83-1.09); PROTHROMBIN TIME (PATIENT) 35.4 SEC (9.7-13.0)
[2019-11-03] MEDS ORDERED: SODIUM CHLORIDE 250 ML IV STA (11:53)
--- NOTE | 2019-11-03 12:09 | RAPID ---
Physical Examination Vital Signs: Vital Signs Temperature 98.7 F 11/03/19 08:55 Pulse Rate 115 H 11/03/19 08:55 Respiratory Rate 20 11/03/19 09:00 Blood Pressure 107/73 11/03/19 08:55 O2 Sat by Pulse Oximetry (%) 96 11/03/19 09:00 BP 65/50, HR 105, O2 86% on 4L Findings/Remarks: Rapid Response called d/t hypotension(65/50) with complaint of lightheadedness when he is moving his head around. Denies SOB, chest pain, abd pain. Chart review notable for Echo showing LVEF 25% with global hypokinesis. On admission, CTA chest was negative for PE. Pt has h/o Factor V Leiden, with INR 3.99 today and INR 2.97 today. Had coreg increased from 12mg BID to 25mg BID today. Lasix 40mg and Coreg 25mg administered at ~10 and 10:30 respectively Constitutional: Yes: Calm (somonolent), Diaphoresis HENT: Yes: Atraumatic, Normocephalic Cardiovascular: Yes: Tachycardia. No: Murmur Respiratory: Yes: Rales (faint Right-sided crackles), Other (full inspiratory effort on command) Gastrointestinal: Yes: Soft. No: Tenderness, Tenderness, Epigastrium Peripheral Pulses: Left Radial: 1+ Neurological: Yes: Alert, Oriented Psychiatric: Yes: Alert, Oriented Labs: CBC, BMP 11/03/19 05:41 11/02/19 06:00 Rapid Response - Rapid Response Assessment: 39M w/ HFrEF(25%) admitted for CHFe with BNP 1695. Rapid called for hypotension(65/50). Increased O2 requirement from 4L to NRB #Hypotension --possibly 2/2 to recent incr in BB with concomittant lasix administration - discussed with Air [employer] Art[employer] Officer - FREDI 250bolus #incr O2 requirments --probably 2/2 to somonolence from hypotension - CXR to eval for pulm congestion
[2019-11-03] MEDS ORDERED: FUROSEMIDE 40 MG/4 ML INJECTABLE VIAL IVPUSH ONE (12:32)
[2019-11-03] MEDS: LEVALBUTEROL HCL 0.31 MG/3 ML VIAL.NEB IH SCH ×2 (15:00→20:14)
[2019-11-03] MEDS ORDERED: WARFARIN NA 10 MG TABLET ONE (16:58)
[2019-11-03] MEDS ORDERED: WARFARIN NA 2 MG TABLET ONE (16:58)
[2019-11-03] MEDS ORDERED: WARFARIN NA 10 MG, WARFARIN NA 2 MG PO SCH (18:00)
[2019-11-03] MEDS ORDERED: WARFARIN NA 10 MG TABLET PO SCH (18:00)
[2019-11-03] MEDS ORDERED: PT OWN MED DRAWER 7, Y5N ONE ×2 (18:43→22:05)
--- NOTE | 2019-11-03 23:50 | PN ---
Progress Note, Physician Chief Complaint: AWAKE IN BED C/O DYSPNEA ON EXERTION DRY COUGH NO CHEST PAIN NO FEVER/ CHILLS AFEBRILE WBC WNL BC (-) SPUTUM NORMAL BRITTNEE LEGIONELLA AG(-) COVID-19 PENDING - Current Medication List Current Medications: Active Medications Carvedilol (Coreg -) 12.5 mg PO BID [facility] Last Admin: 11/03/19 22:14 Dose: 12.5 mg Documented by: Ceftriaxone Sodium 1 gm/ (Dextrose) 50 mls @ 100 mls/hr IVPB DAILY [facility]; Protocol Last Admin: 11/03/19 09:29 Dose: 100 mls/hr Documented by: Azithromycin (Zithromax 500mg Ivpb (Pre-Docked)) 500 mg in 250 mls @ 250 mls/hr IVPB DAILY [facility] Stop: 11/04/19 10:59 Last Admin: 11/03/19 09:30 Dose: 250 mls/hr Documented by: Levalbuterol HCl (Xopenex) 0.31 mg IH RTID [facility] Last Admin: 11/03/19 20:14 Dose: 0.31 mg Documented by: Sacubitril/Valsartan (Entresto 24 Mg-26 Mg Tablet) 1 tab PO BID [facility] Last Admin: 11/03/19 22:14 Dose: 1 tab Documented by: Warfarin Sodium 10 mg/ (Warfarin Sodium 2 mg) 12 mg PO DAILY@1800 [facility] Last Admin: 11/03/19 17:18 Dose: 12 mg Documented by: - Objective Vital Signs: Vital Signs Temperature 97.3 F L 11/03/19 20:00 Pulse Rate 111 H 11/03/19 22:12 Respiratory Rate 18 11/03/19 22:12 Blood Pressure 107/75 11/03/19 22:12 O2 Sat by Pulse Oximetry (%) 96 11/03/19 09:00 Constitutional: Yes: No Distress Eyes: Yes: Conjunctiva Clear Cardiovascular: Yes: Regular Rate and Rhythm, S1, S2 Respiratory: Yes: CTA Bilaterally Gastrointestinal: Yes: Normal Bowel Sounds, Soft. No: Tenderness Edema: No Labs: CBC, BMP 11/03/19 05:41 11/02/19 06:00 INR, PTT INR 2.97 (0.83-1.09) H 11/03/19 10:26 Assessment/Plan RML,RLL [facility] ACQ V. ATYPICAL R/O COVID-19 FACTOR V LEIDEN AWAIT C/S, COVID PCR CONTINUE EMPIRIC CEFTRIAXONE/ ZITHROMAX AIRBORNE PRECAUTIONS PULMONARY F/U
--- NOTE | 2019-11-04 07:03 | PN ---
Progress Note, Physician History of Present Illness: PULMONARY ALERT,LESS DYSPNEIC,C/O CHEST PRESSURE - Current Medication List Current Medications: Active Medications Carvedilol (Coreg -) 12.5 mg PO BID [facility] Last Admin: 11/03/19 22:14 Dose: 12.5 mg Documented by: Ceftriaxone Sodium 1 gm/ (Dextrose) 50 mls @ 100 mls/hr IVPB DAILY [facility]; Protocol Last Admin: 11/03/19 09:29 Dose: 100 mls/hr Documented by: Azithromycin (Zithromax 500mg Ivpb (Pre-Docked)) 500 mg in 250 mls @ 250 mls/hr IVPB DAILY [facility] Stop: 11/04/19 10:59 Last Admin: 11/03/19 09:30 Dose: 250 mls/hr Documented by: Levalbuterol HCl (Xopenex) 0.31 mg IH RTID [facility] Last Admin: 11/03/19 20:14 Dose: 0.31 mg Documented by: Sacubitril/Valsartan (Entresto 24 Mg-26 Mg Tablet) 1 tab PO BID [facility] Last Admin: 11/03/19 22:14 Dose: 1 tab Documented by: Warfarin Sodium 10 mg/ (Warfarin Sodium 2 mg) 12 mg PO DAILY@1800 [facility] Last Admin: 11/03/19 17:18 Dose: 12 mg Documented by: - Objective Vital Signs: Vital Signs Temperature 97.9 F 11/04/19 06:00 Pulse Rate 100 H 11/04/19 06:00 Respiratory Rate 20 11/04/19 06:00 Blood Pressure 105/64 11/04/19 06:00 O2 Sat by Pulse Oximetry (%) 96 11/03/19 21:00 Constitutional: Yes: Calm, Obese Eyes: Yes: WNL HENT: Yes: WNL Neck: Yes: WNL Cardiovascular: Yes: Regular Rate and Rhythm, S1, S2 Respiratory: Yes: CTA Bilaterally Gastrointestinal: Yes: Normal Bowel Sounds, Soft, Abdomen, Obese Extremities: Yes: WNL Edema: No Labs: CBC, BMP 11/03/19 05: Problem List - Problems (1) Suspected 2019-nCoV infection Code(s): Z20.828 - CONTACT W AND EXPOSURE TO OTH VIRAL COMMUNICABLE DISEASES (2) Dry cough Code(s): R05 - COUGH (3) Factor V Leiden Code(s): D68.51 - ACTIVATED PROTEIN C RESISTANCE (4) Left leg DVT Code(s): I82.402 - ACUTE EMBOLISM AND THOMBOS UNSP DEEP VEINS OF L LOW EXTREM (5) Shortness of breath Code(s): R06.02 - SHORTNESS OF BREATH (6) Sinus tachycardia Code(s): R00.0 - TACHYCARDIA, UNSPECIFIED (7) Tightness in chest Code(s): R07.89 - OTHER CHEST PAIN Assessment/Plan ASSESSMENT AND PLAN: Pneumonia r/o COVID19 Factor V Leiden h/o DVT chf Severe LV dysfunction Severe Pul HTN SUSPECTED NATHALY - empiric antibiotics - O2 to keep SpO2 >90% - continue anticoagulation - Inflammatory markers - inhaled bronchodilators - lasix - cardiac cath as per Cardiology - sleep studies outpatient DR JONES
[2019-11-04] MEDS: LEVALBUTEROL HCL 0.31 MG/3 ML VIAL.NEB IH SCH ×3 (07:27→20:15)
--- NOTE | 2019-11-04 08:35 | PN ---
Progress Note, Physician Chief Complaint: Patient seen and examined at the bedside, no acute events from last night, shortness of breath especially on exertion and in lying position, oxygen 4L/min via nasal cannula with spo2 96%. History of Present Illness: This 39 yr old w/m with PMH of Factor V Leiden, DVT of left lower leg, EF 25% admitted via ER with an acute shortness of breath, tightness in chest, palpitations, pulmonary vascular congestion, and an acute pneumonia. - Current Medication List Current Medications: Active Medications Carvedilol (Coreg -) 12.5 mg PO BID [facility] Last Admin: 11/03/19 22:14 Dose: 12.5 mg Documented by: Ceftriaxone Sodium 1 gm/ (Dextrose) 50 mls @ 100 mls/hr IVPB DAILY [facility]; Protocol Last Admin: 11/03/19 09:29 Dose: 100 mls/hr Documented by: Azithromycin (Zithromax 500mg Ivpb (Pre-Docked)) 500 mg in 250 mls @ 250 mls/hr IVPB DAILY [facility] Stop: 11/04/19 10:59 Last Admin: 11/03/19 09:30 Dose: 250 mls/hr Documented by: Levalbuterol HCl (Xopenex) 0.31 mg IH RTID [facility] Last Admin: 11/03/19 20:14 Dose: 0.31 mg Documented by: Sacubitril/Valsartan (Entresto 24 Mg-26 Mg Tablet) 1 tab PO BID [facility] Last Admin: 11/03/19 22:14 Dose: 1 tab Documented by: Warfarin Sodium 10 mg/ (Warfarin Sodium 2 mg) 12 mg PO DAILY@1800 [facility] Last Admin: 11/03/19 17:18 Dose: 12 mg Documented by: - Objective Vital Signs: Vital Signs Temperature 97.9 F 11/04/19 06:00 Pulse Rate 100 H 11/04/19 06:00 Respiratory Rate 20 11/04/19 06:00 Blood Pressure 105/64 11/04/19 06:00 O2 Sat by Pulse Oximetry (%) 96 11/03/19 21:00 Labs: CBC, BMP 11/03/19 05:41 11/02/19 06:00 INR, PTT INR 2.97 (0.83-1.09) H 11/03/19 10:26 Problem List - Problems (1) Tightness in chest Code(s): R07.89 - OTHER CHEST PAIN (2) Dry cough Code(s): R05 - COUGH (3) Factor V Leiden Code(s): D68.51 - ACTIVATED PROTEIN C RESISTANCE (4) Left leg DVT Code(s): I82.402 - ACUTE EMBOLISM AND THOMBOS UNSP DEEP VEINS OF L LOW EXTREM (5) Atrial flutter with rapid ventricular response Code(s): I48.92 - UNSPECIFIED ATRIAL FLUTTER (6) Pneumonia Code(s): J18.9 - PNEUMONIA, UNSPECIFIED ORGANISM (7) Shortness of breath Code(s): R06.02 - SHORTNESS OF BREATH
[2019-11-04] MEDS ORDERED: cefTRIAXone SODIUM 1 GM VIAL ONE (09:46)
[2019-11-04] MEDS ORDERED: DEXTROSE 5%-WATER - 50 ML IVPB ONE (09:46)
[2019-11-04] MEDS: CARVEDILOL 12.5 MG TABLET (FP) PO SCH ×2 (10:15→22:01)
[2019-11-04] MEDS: CEFTRIAXONE 1 GM in DEXTROSE 5%-WATER - 50 ML IVPB SCH (10:15)
[2019-11-04] MEDS: SACUBITRIL/VALSARTAN 24 MG-26 MG TABLET PO SCH ×2 (10:15→22:01)
[2019-11-04] MEDS: AZITHROMYCIN IVPB 500 MG/250 ML BAG IVPB SCH (10:16)
--- NOTE | 2019-11-04 10:16 | PN ---
Progress Note, Physician Chief Complaint: Events noted Feels better Tolerating therapy History of Present Illness: Patient was seen and examined. Awake and alert. Chart was reviewed Denies chest pain or palpitations Intermittent dyspnea - Current Medication List Current Medications: Active Medications Carvedilol (Coreg -) 12.5 mg PO BID [facility] Last Admin: 11/03/19 22:14 Dose: 12.5 mg Documented by: Ceftriaxone Sodium 1 gm/ (Dextrose) 50 mls @ 100 mls/hr IVPB DAILY [facility]; Protocol Last Admin: 11/03/19 09:29 Dose: 100 mls/hr Documented by: Azithromycin (Zithromax 500mg Ivpb (Pre-Docked)) 500 mg in 250 mls @ 250 mls/hr IVPB DAILY [facility] Stop: 11/04/19 10:59 Last Admin: 11/03/19 09:30 Dose: 250 mls/hr Documented by: Levalbuterol HCl (Xopenex) 0.31 mg IH RTID [facility] Last Admin: 11/04/19 07:27 Dose: Not Given Documented by: Sacubitril/Valsartan (Entresto 24 Mg-26 Mg Tablet) 1 tab PO BID [facility] Last Admin: 11/03/19 22:14 Dose: 1 tab Documented by: Spironolactone (Aldactone -) 25 mg PO DAILY [facility] - Objective Vital Signs: Vital Signs Temperature 97.9 F 11/04/19 06:00 Pulse Rate 100 H 11/04/19 06:00 Respiratory Rate 20 11/04/19 06:00 Blood Pressure 105/64 11/04/19 06:00 O2 Sat by Pulse Oximetry (%) 96 11/03/19 21:00 Eyes: Yes: PERRL HENT: Yes: Atraumatic Neck: Yes: Supple Cardiovascular: Yes: Tachycardia, S1, S2 Respiratory: Yes: Diminished Gastrointestinal: Yes: Normal Bowel Sounds, Soft. No: Tenderness Edema: No Additional Findings/Remarks: - Review of Systems Constitutional: denies: Chills, Fever Cardiovascular: reports: Chest Pain, Shortness of Breath. denies: Palpitations Respiratory: reports: Cough, SOB. denies: Hemoptysis, Orthopnea, PND Gastrointestinal: denies: Abdominal Pain, Constipation, Diarrhea, Melena, Nausea, Rectal Bleeding, Vomiting Genitourinary: denies: Dysuria, Hematuria Musculoskeletal: denies: Back Pain, Joint Pain Neurological: reports: Weakness. denies: Dizziness, Headache, Seizure, Syncope Labs: CBC, BMP 11/03/19 05:41 11/02/19 06:00 INR, PTT INR 2.97 (0.83-1.09) H 11/03/19 10:26 Problem List - Problems (1) Sinus tachycardia Code(s): R00.0 - TACHYCARDIA, UNSPECIFIED (2) LBBB (left bundle branch block) Code(s): I44.7 - LEFT BUNDLE-BRANCH BLOCK, UNSPECIFIED (3) Factor V Leiden Code(s): D68.51 - ACTIVATED PROTEIN C RESISTANCE (4) Pneumonia Code(s): J18.9 - PNEUMONIA, UNSPECIFIED ORGANISM (5) Shortness of breath Code(s): R06.02 - SHORTNESS OF BREATH (6) Tightness in chest Code(s): R07.89 - OTHER CHEST PAIN (7) Dilated cardiomyopathy Code(s): I42.0 - DILATED CARDIOMYOPATHY Assessment/Plan 1. 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 Chest pain and shortness of breath suggests due to pulmonary infiltrates +/- severe pulmonary HTN 3. Factor V Leiden 4. History of multiple DVTs PLAN: 1. In view of above finding, plan is to proceed with cardiac catheterization including right and left heart cath at [facility] on Thursday. (t entatively) 2. Continue Carvedilol 12.5 mg BID and uptitrate. Continue Entresto 24/26 mg BID as tolerated and uptitrate. Add Spironolactone 25 mg QD 3. Continue Coumadin and monitor INR to keep in between 2-2.5. Cardiac catheterization will be done with INR in that range in view of high risk for thr ombus formation. If INR is less than 2, start Heparin drip and monitor PTT. Coumadin to be dosed daily and will be given 8 mg today 4. Empiric antibiotics coverage 5. Eventually will need LifeVest and if LVEF does not improve, will need possible [employer]-D implantation 6. Further work up including cardiac MRI can be done as outpatient Guarded Further plans are to follow Ok Allison MD
--- NOTE | 2019-11-04 10:16 | PN ---
Progress Note, Physician Chief Complaint: See first note dated 11/04/2019 for chief complaint and HPI. - Current Medication List Current Medications: Active Medications Carvedilol (Coreg -) 12.5 mg PO BID [facility] Last Admin: 11/03/19 22:14 Dose: 12.5 mg Documented by: Ceftriaxone Sodium 1 gm/ (Dextrose) 50 mls @ 100 mls/hr IVPB DAILY [facility]; Protocol Last Admin: 11/03/19 09:29 Dose: 100 mls/hr Documented by: Azithromycin (Zithromax 500mg Ivpb (Pre-Docked)) 500 mg in 250 mls @ 250 mls/hr IVPB DAILY [facility] Stop: 11/04/19 10:59 Last Admin: 11/03/19 09:30 Dose: 250 mls/hr Documented by: Levalbuterol HCl (Xopenex) 0.31 mg IH RTID [facility] Last Admin: 11/04/19 07:27 Dose: Not Given Documented by: Sacubitril/Valsartan (Entresto 24 Mg-26 Mg Tablet) 1 tab PO BID [facility] Last Admin: 11/03/19 22:14 Dose: 1 tab Documented by: Spironolactone (Aldactone -) 25 mg PO DAILY [facility] - Objective Vital Signs: Vital Signs Temperature 97.9 F 11/04/19 06:00 Pulse Rate 100 H 11/04/19 06:00 Respiratory Rate 20 11/04/19 06:00 Blood Pressure 105/64 11/04/19 06:00 O2 Sat by Pulse Oximetry (%) 96 11/03/19 21:00 Constitutional: Yes: Well Nourished, Calm, Mild Distress Eyes: Yes: Conjunctiva Clear, EOM Intact HENT: Yes: Atraumatic, Normocephalic Neck: Yes: Supple, Trachea Midline Cardiovascular: Yes: Regular Rate and Rhythm, Tachycardia Respiratory: Yes: Regular, CTA Bilaterally Gastrointestinal: Yes: Normal Bowel Sounds, Soft ...Rectal Exam: Yes: Deferred Genitourinary: Yes: WNL Breast(s): Yes: WNL Musculoskeletal: Yes: WNL Extremities: Yes: WNL Edema: Yes Edema: LLE: 1+ Peripheral Pulses WNL: Yes Integumentary: Yes: WNL Neurological: Yes: WNL ...Motor Strength: WNL Psychiatric: Yes: WNL Labs: CBC, BMP 11/03/19 05:41 11/02/19 06:00 INR, PTT INR 2.97 (0.83-1.09) H 11/03/19 10:26 - ....Imaging Other: Report Reviewed (lab data reviewed) Problem List - Problems (1) Tightness in chest Code(s): R07.89 - OTHER CHEST PAIN (2) Dry cough Code(s): R05 - COUGH (3) Factor V Leiden Code(s): D68.51 - ACTIVATED PROTEIN C RESISTANCE (4) Left leg DVT Code(s): I82.402 - ACUTE EMBOLISM AND THOMBOS UNSP DEEP VEINS OF L LOW EXTREM (5) Atrial flutter with rapid ventricular response Code(s): I48.92 - UNSPECIFIED ATRIAL FLUTTER (6) Pneumonia Code(s): J18.9 - PNEUMONIA, UNSPECIFIED ORGANISM (7) Shortness of breath Code(s): R06.02 - SHORTNESS OF BREATH Assessment/Plan Assessment/plan: acute tachyarrhythmia, acute shortness of breath, dry cough, acute tightness in the chest, acute pulmonary vascular congestion, acute pneumonia, EF 25%, Factor V Leiden, >10x DVT of left lower leg; a/c with Warfarin, IV Azithromycin and Ceftriaxone as per ID for acute pneumonia, scheduled for coronary angiogram on Thursday, Levalbuterol, Spironolactone, Coreg, Sacubitril/Valsartan.
[2019-11-04] MEDS: SPIRONOLACTONE 25 MG TABLET PO SCH (10:44)
[2019-11-04 11:39] LABS: INR 2.5 (0.83-1.09); PROTHROMBIN TIME (PATIENT) 29.8 SEC (9.7-13.0)
[2019-11-04 11:42] LABS: ACTIVATED PTT 36.3 SECONDS (25.2-36.5)
[2019-11-04] MEDS ORDERED: WARFARIN NA 3 MG TABLET ONE (16:29)
[2019-11-04] MEDS ORDERED: WARFARIN NA 5 MG TABLET ONE (16:29)
[2019-11-04] MEDS ORDERED: WARFARIN NA 3 MG, WARFARIN NA 5 MG PO ONE (18:00)
[2019-11-04] MEDS ORDERED: PT OWN MED DRAWER 7, Y5N ONE (21:27)
--- NOTE | 2019-11-04 23:54 | PN ---
Progress Note, Physician Chief Complaint: AWAKE IN BED C/O DYSPNEA ON EXERTION DRY COUGH NO CHEST PAIN NO FEVER/ CHILLS AFEBRILE WBC WNL BC (-) SPUTUM NORMAL BRITTNEE LEGIONELLA AG(-) - Current Medication List Current Medications: Active Medications Carvedilol (Coreg -) 12.5 mg PO BID [facility] Last Admin: 11/04/19 22:01 Dose: 12.5 mg Documented by: Ceftriaxone Sodium 1 gm/ (Dextrose) 50 mls @ 100 mls/hr IVPB DAILY [facility]; Protocol Last Admin: 11/04/19 10:15 Dose: 100 mls/hr Documented by: Levalbuterol HCl (Xopenex) 0.31 mg IH RTID [facility] Last Admin: 11/04/19 20:15 Dose: 0.31 mg Documented by: Sacubitril/Valsartan (Entresto 24 Mg-26 Mg Tablet) 1 tab PO BID [facility] Last Admin: 11/04/19 22:01 Dose: 1 tab Documented by: Spironolactone (Aldactone -) 25 mg PO DAILY [facility] Last Admin: 11/04/19 10:44 Dose: 25 mg Documented by: - Objective Vital Signs: Vital Signs Temperature 97.8 F 11/04/19 22:00 Pulse Rate 109 H 11/04/19 22:00 Respiratory Rate 18 11/04/19 22:00 Blood Pressure 104/74 11/04/19 22:00 O2 Sat by Pulse Oximetry (%) 94 L 11/04/19 21:00 Constitutional: Yes: No Distress Eyes: Yes: Conjunctiva Clear Cardiovascular: Yes: Regular Rate and Rhythm, S1, S2 Respiratory: Yes: CTA Bilaterally Gastrointestinal: Yes: Normal Bowel Sounds, Soft. No: Tenderness Edema: No Labs: CBC, BMP 11/03/19 05:41 11/02/19 06:00 INR, PTT INR 2.50 (0.83-1.09) H 11/04/19 10:40 Assessment/Plan RML,RLL [facility] ACQ V. ATYPICAL FACTOR V LEIDEN CONTINUE EMPIRIC CEFTRIAXONE/ ZITHROMAX AIRBORNE PRECAUTIONS PULMONARY F/U
[2019-11-05] MEDS: LEVALBUTEROL HCL 0.31 MG/3 ML VIAL.NEB IH SCH ×3 (08:20→20:13)
--- NOTE | 2019-11-05 09:09 | PN ---
Progress Note, Physician Chief Complaint: Patient seen and examined at the bedside, no acute events from last night, shortness of breath, no chest tightness. History of Present Illness: This 39 yr old w/m with PMH of Factor V Leiden, >10x DVT of the left lower leg, EF 25% admitted via ER with an acute shortness of breath, acute tightness in the chest, acute tachyarrhythmia, acute palpitations, acute pulmonary vascular congestion, and an acute pneumonia. - Current Medication List Current Medications: Active Medications Carvedilol (Coreg -) 12.5 mg PO BID [facility] Last Admin: 11/04/19 22:01 Dose: 12.5 mg Documented by: Ceftriaxone Sodium 1 gm/ (Dextrose) 50 mls @ 100 mls/hr IVPB DAILY [facility]; Protocol Last Admin: 11/04/19 10:15 Dose: 100 mls/hr Documented by: Levalbuterol HCl (Xopenex) 0.31 mg IH RTID [facility] Last Admin: 11/04/19 20:15 Dose: 0.31 mg Documented by: Sacubitril/Valsartan (Entresto 24 Mg-26 Mg Tablet) 1 tab PO BID [facility] Last Admin: 11/04/19 22:01 Dose: 1 tab Documented by: Spironolactone (Aldactone -) 25 mg PO DAILY [facility] Last Admin: 11/04/19 10:44 Dose: 25 mg Documented by: - Objective Vital Signs: Vital Signs Temperature 97.7 F 11/05/19 06:00 Pulse Rate 102 H 11/05/19 06:00 Respiratory Rate 20 11/05/19 06:00 Blood Pressure 90/61 11/05/19 06:00 O2 Sat by Pulse Oximetry (%) 94 L 11/04/19 21:00 Constitutional: Yes: Well Nourished, Calm, Mild Distress Eyes: Yes: Conjunctiva Clear, EOM Intact HENT: Yes: Atraumatic, Normocephalic Neck: Yes: Supple, Trachea Midline Cardiovascular: Yes: Regular Rate and Rhythm, Tachycardia Respiratory: Yes: Regular, CTA Bilaterally Gastrointestinal: Yes: Normal Bowel Sounds, Soft, Abdomen, Obese ...Rectal Exam: Yes: Deferred Genitourinary: Yes: WNL Breast(s): Yes: WNL Musculoskeletal: Yes: WNL Extremities: Yes: WNL Edema: Yes Edema: LLE: 1+ Peripheral Pulses WNL: Yes Integumentary: Yes: WNL Neurological: Yes: WNL ...Motor Strength: WNL Psychiatric: Yes: WNL Labs: CBC, BMP 11/03/19 05:41 11/02/19 06:00 INR, PTT INR 2.50 (0.83-1.09) H 11/04/19 10:40 - ....Imaging Other: Report Reviewed (lab data reviewed) Problem List - Problems (1) Tightness in chest Code(s): R07.89 - OTHER CHEST PAIN (2) Dry cough Code(s): R05 - COUGH (3) Factor V Leiden Code(s): D68.51 - ACTIVATED PROTEIN C RESISTANCE (4) Left leg DVT Code(s): I82.402 - ACUTE EMBOLISM AND THOMBOS UNSP DEEP VEINS OF L LOW EXTREM (5) Atrial flutter with rapid ventricular response Code(s): I48.92 - UNSPECIFIED ATRIAL FLUTTER (6) Pneumonia Code(s): J18.9 - PNEUMONIA, UNSPECIFIED ORGANISM (7) Shortness of breath Code(s): R06.02 - SHORTNESS OF BREATH Assessment/Plan Assessment/plan: acute shortness of breath, acute tightness in chest, acute dry cough, acute pulmonary vascular congestion, acute pneumonia, Factor V Leiden; DVT prophylaxis, Warfarin, Sacubitril/Valsartan, Spironolactone, Levalbuterol as per Pulmonary, Ceftriaxone as per ID, oxygen 4L/min via nasal cannula with spo2 94%.
[2019-11-05] MEDS ORDERED: cefTRIAXone SODIUM 1 GM VIAL ONE (09:12)
[2019-11-05] MEDS ORDERED: DEXTROSE 5%-WATER - 50 ML IVPB ONE (09:12)
[2019-11-05] MEDS ORDERED: PT OWN MED DRAWER 7, Y5N ONE ×2 (09:12→21:57)
--- NOTE | 2019-11-05 09:17 | PN ---
Progress Note, Physician Chief Complaint: Events noted Feels better Tolerating therapy History of Present Illness: Patient was seen and examined. Awake and alert. Chart was reviewed Denies chest pain or palpitations Less dyspnea - Current Medication List Current Medications: Active Medications Carvedilol (Coreg -) 12.5 mg PO BID [facility] BEDS AT [facility] Last Admin: 11/04/19 22:01 Dose: 12.5 mg Documented by: Ceftriaxone Sodium 1 gm/ (Dextrose) 50 mls @ 100 mls/hr IVPB DAILY [facility]S [facility]CLUDE 234 BEDS AT THE [facility]; Protoco l Last Admin: 11/04/19 10:15 Dose: 100 mls/hr Documented by: Levalbuterol HCl (Xopenex) 0.31 mg IH RTID [facility]CLUDE 234 BEDS AT [facility] Last Admin: 11/04/19 20:15 Dose: 0.31 mg Documented by: Sacubitril/Valsartan (Entresto 24 Mg-26 Mg Tablet) 1 tab PO BID [facility]CLUDE 234 BEDS AT [facility] Last Admin: 11/04/19 22:01 Dose: 1 tab Documented by: Spironolactone (Aldactone -) 25 mg PO DAILY [facility]CLUDE 234 BEDS AT [facility] Last Admin: 11/04/19 10:44 Dose: 25 mg Documented by: - Objective Vital Signs: Vital Signs Temperature 97.7 F 11/05/19 06:00 Pulse Rate 102 H 11/05/19 06:00 Respiratory Rate 20 11/05/19 06:00 Blood Pressure 90/61 11/05/19 06:00 O2 Sat by Pulse Oximetry (%) 94 L 11/04/19 21:00 Neck: Yes: Supple Cardiovascular: Yes: Tachycardia, S1, S2 Respiratory: Yes: Diminished Gastrointestinal: Yes: Normal Bowel Sounds, Soft. No: Tenderness Edema: No Additional Findings/Remarks: - Review of Systems Constitutional: denies: Chills, Fever Cardiovascular: reports: Chest Pain, Shortness of Breath. denies: Palpitations Respiratory: reports: Cough, SOB. denies: Hemoptysis, Orthopnea, PND Gastrointestinal: denies: Abdominal Pain, Constipation, Diarrhea, Melena, Nausea, Rectal Bleeding, Vomiting Genitourinary: denies: Dysuria, Hematuria Musculoskeletal: denies: Back Pain, Joint Pain Neurological: reports: Weakness. denies: Dizziness, Headache, Seizure, Syncope Labs: CBC, BMP 11/03/19 05:41 11/02/19 06:00 INR, PTT INR 2.50 (0.83-1.09) H 11/04/19 10:40 Problem List - Problems (1) Sinus tachycardia Code(s): R00.0 - TACHYCARDIA, UNSPECIFIED (2) LBBB (left bundle branch block) Code(s): I44.7 - LEFT BUNDLE-BRANCH BLOCK, UNSPECIFIED (3) Factor V Leiden Code(s): D68.51 - ACTIVATED PROTEIN C RESISTANCE (4) Pneumonia Code(s): J18.9 - PNEUMONIA, UNSPECIFIED ORGANISM (5) Shortness of breath Code(s): R06.02 - SHORTNESS OF BREATH (6) Tightness in chest Code(s): R07.89 - OTHER CHEST PAIN (7) Dilated cardiomyopathy Code(s): I42.0 - DILATED CARDIOMYOPATHY Assessment/Plan 1. 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 Chest pain and shortness of breath suggests due to pulmonary infiltrates +/- severe pulmonary HTN 3. Factor V Leiden 4. History of multiple DVTs PLAN: 1. In view of above finding, plan is to proceed with cardiac catheterization including right and left heart cath at [facility] on Thursday. (tentatively) 2. Continue Carvedilol 12.5 mg BID and uptitrate. Continue Entresto 24/26 mg BID as tolerated and uptitrate. Continue Spironolactone 25 mg QD as tolerated. Monitor electrolytes 3. Continue Coumadin and monitor INR to keep in between 2-2.5. Cardiac catheterization will be done with INR in that range in view of high risk for thrombus formation. If INR is less than 2, start Heparin drip and monitor PTT. Coumadin to be dosed daily 4. Empiric antibiotics coverage 5. Eventually will need LifeVest and if LVEF does not improve, will need SECTION WE[employer]ER-D implantation 6. Further work up including cardiac MRI can be done as outpatient Guarded Further plans are to follow Ok Allison MD
[2019-11-05] MEDS: CEFTRIAXONE 1 GM in DEXTROSE 5%-WATER - 50 ML IVPB SCH (09:22)
[2019-11-05] MEDS: SPIRONOLACTONE 25 MG TABLET PO SCH (09:23)
[2019-11-05] MEDS: SACUBITRIL/VALSARTAN 24 MG-26 MG TABLET PO SCH ×2 (09:23→23:22)
[2019-11-05] MEDS: CARVEDILOL 12.5 MG TABLET (FP) PO SCH ×2 (09:23→22:21)
[2019-11-05 12:23] LABS: BASO % 1.5 % (0-2.0); EOS % 2.1 % (0-4.5); HEMATOCRIT 45.8 % (35.4-49); HEMOGLOBIN 14.8 GM/dL (11.7-16.9); LYMPH % 23.6 % (8-40); MCH 28.6 pg (25.7-33.7); MCHC 32.4 g/dl (32.0-35.9); MEAN CELL VOLUME 88.2 fl (80-96); MEAN PLT VOLUME 8.6 fl (7.5-11.1); MONO % 5.8 % (3.8-10.2); PLATELET COUNT 463 K/MM3 (134-434); RBC 5.19 M/mm3 (4.00-5.60); RDW 13.9 % (11.9-15.9); WHITE BLOOD COUNT 8.1 K/mm3 (4.0-10.0)
[2019-11-05 12:30] LABS: INR 2.37 (0.83-1.09); PROTHROMBIN TIME (PATIENT) 28.2 SEC (9.7-13.0)
[2019-11-05 12:47] LABS: ALBUMIN 3.2 g/dl (3.4-5.0); BILIRUBIN,TOTAL 0.6 mg/dL (0.2-1); BLOOD UREA NITROGEN 21.3 mg/dL (7-18); CALCIUM 9.5 mg/dL (8.5-10.1); POTASSIUM 4.9 mmol/L (3.5-5.1)
--- NOTE | 2019-11-05 15:46 | PN ---
Progress Note (short form) - Note Progress Note: PULMONARY Still dyspneic with exertion. No fevers. Occasional cough. Vital Signs Period Temp Pulse Resp BP Sys/Torres Pulse Ox Last 24 Hr 97.5 F-97.9 F 102-109 18-20 90-117/61-74 94-100 Gen: NAD at rest Heart: RRR Lung: decreased breath sounds at the bases Abd: soft, nontender Ext: no edema CBC, BMP 11/05/19 10:40 11/05/19 10:40 Active Medications Carvedilol (Coreg -) 12.5 mg PO BID [facility] Last Admin: 11/05/19 09:23 Dose: 12.5 mg Documented by: Ceftriaxone Sodium 1 gm/ (Dextrose) 50 mls @ 100 mls/hr IVPB DAILY [facility]; Protocol Last Admin: 11/05/19 09:22 Dose: 100 mls/hr Documented by: Levalbuterol HCl (Xopenex) 0.31 mg IH RTID [facility] Last Admin: 11/04/19 20:15 Dose: 0.31 mg Documented by: Sacubitril/Valsartan (Entresto 24 Mg-26 Mg Tablet) 1 tab PO BID [facility] Last Admin: 11/05/19 09:23 Dose: 1 tab Documented by: Spironolactone (Aldactone -) 25 mg PO DAILY [facility] Last Admin: 11/05/19 09:23 Dose: 25 mg Documented by: Warfarin Sodium 5 mg/ Warfarin (Sodium 3 mg) 8 mg PO ONCE ONE Stop: 11/05/19 18:01 A/P Pneumonia Factor V Leiden Severe LV Systolic Dysfunction Pulmonary HTN h/o DVT Suspect NATHALY - empiric antibiotics - O2 to keep SpO2 >90% - continue anticoagulation - short trial of medrol - inhaled bronchodilators - aldactone
[2019-11-05] MEDS ORDERED: WARFARIN NA 3 MG TABLET ONE (16:47)
[2019-11-05] MEDS ORDERED: WARFARIN NA 5 MG TABLET ONE (16:47)
[2019-11-05] MEDS: methylPREDNISolone NA SUCC 40 MG/1 ML VIAL IVPUSH SCH (16:49)
[2019-11-05] MEDS ORDERED: WARFARIN NA 5 MG, WARFARIN NA 3 MG PO ONE (18:00)
[2019-11-05] MEDS ORDERED: WARFARIN NA 7.5 MG TABLET (FP) PO ONE (18:00)
[2019-11-06] MEDS: methylPREDNISolone NA SUCC 40 MG/1 ML VIAL IVPUSH SCH ×3 (01:33→17:39)
--- NOTE | 2019-11-06 08:29 | PN ---
Progress Note, Physician Chief Complaint: Patient seen and examined at the bedside, no acute events from last night, intermittent shortness of breath and tightness in chest. History of Present Illness: This 39 yr old w/m with PMH of Factor V Leiden, >10x DVT of the left lower leg, EF 25% admitted via ER with an acute shortness of breath, acute tightness in the chest, acute tachyarrhythmia, acute pulmonary vascular congestion, and an acute pneumonia. - Current Medication List Current Medications: Active Medications Carvedilol (Coreg -) 12.5 mg PO BID [facility] Last Admin: 11/05/19 22:21 Dose: 12.5 mg Documented by: Ceftriaxone Sodium 1 gm/ (Dextrose) 50 mls @ 100 mls/hr IVPB DAILY [facility]; Protocol Last Admin: 11/05/19 09:22 Dose: 100 mls/hr Documented by: Levalbuterol HCl (Xopenex) 0.31 mg IH RTID [facility] Last Admin: 11/05/19 20:13 Dose: 0.31 mg Documented by: Methylprednisolone Sodium Succinate (Solu-Medrol -) 40 mg IVPUSH Q8H-IV [facility] Last Admin: 11/06/19 01:33 Dose: 40 mg Documented by: Sacubitril/Valsartan (Entresto 24 Mg-26 Mg Tablet) 1 tab PO BID [facility] Last Admin: 11/05/19 23:22 Dose: 1 tab Documented by: Spironolactone (Aldactone -) 25 mg PO DAILY [facility] Last Admin: 11/05/19 09:23 Dose: 25 mg Documented by: - Objective Vital Signs: Vital Signs Temperature 97.5 F L 11/06/19 06:00 Pulse Rate 103 H 11/06/19 06:00 Respiratory Rate 20 11/06/19 06:00 Blood Pressure 93/63 11/06/19 06:00 O2 Sat by Pulse Oximetry (%) 99 11/05/19 21:00 Constitutional: Yes: Well Nourished, Calm, Mild Distress Eyes: Yes: Conjunctiva Clear, EOM Intact HENT: Yes: Atraumatic, Normocephalic Neck: Yes: Supple, Trachea Midline Cardiovascular: Yes: Regular Rate and Rhythm, Tachycardia Respiratory: Yes: Regular, CTA Bilaterally Gastrointestinal: Yes: Normal Bowel Sounds, Soft ...Rectal Exam: Yes: Deferred Genitourinary: Yes: WNL Breast(s): Yes: WNL Musculoskeletal: Yes: WNL Extremities: Yes: WNL Edema: Yes Edema: LLE: 1+ Peripheral Pulses WNL: Yes Integumentary: Yes: WNL Neurological: Yes: WNL ...Motor Strength: WNL Psychiatric: Yes: WNL Labs: CBC, BMP 11/05/19 10:40 11/05/19 10:40 INR, PTT INR 2.37 (0.83-1.09) H 11/05/19 10:40 - ....Imaging Other: Report Reviewed (lab data reviewed) Problem List - Problems (1) Tightness in chest Code(s): R07.89 - OTHER CHEST PAIN (2) Dry cough Code(s): R05 - COUGH (3) Factor V Leiden Code(s): D68.51 - ACTIVATED PROTEIN C RESISTANCE (4) Left leg DVT Code(s): I82.402 - ACUTE EMBOLISM AND THOMBOS UNSP DEEP VEINS OF L LOW EXTREM (5) Atrial flutter with rapid ventricular response Code(s): I48.92 - UNSPECIFIED ATRIAL FLUTTER (6) Pneumonia Code(s): J18.9 - PNEUMONIA, UNSPECIFIED ORGANISM (7) Shortness of breath Code(s): R06.02 - SHORTNESS OF BREATH Assessment/Plan Assessment/plan: acute shortness of breath, acute tightness in chest, acute pulmonary vascular congestion, acute pneumonia, acute severe LV systolic dysfunction, pulmonary hypertension, Factor V Leiden, >10x DVT of the left lower leg; IV Ceftriaxone as per ID, Levalbuterol, Warfarin, Coreg, Spironolactone, Sacubitril/Valsartan, IV methylprednisolone, scheduled for coronary angiogram tomorrow.
[2019-11-06] MEDS: LEVALBUTEROL HCL 0.31 MG/3 ML VIAL.NEB IH SCH ×3 (08:36→20:33)
[2019-11-06] MEDS ORDERED: DEXTROSE 5%-WATER - 50 ML IVPB ONE (08:56)
[2019-11-06] MEDS ORDERED: cefTRIAXone SODIUM 1 GM VIAL ONE (08:56)
[2019-11-06] MEDS ORDERED: PT OWN MED DRAWER 7, Y5N ONE ×2 (08:56→21:03)
[2019-11-06] MEDS: SPIRONOLACTONE 25 MG TABLET PO SCH (09:37)
[2019-11-06] MEDS: CEFTRIAXONE 1 GM in DEXTROSE 5%-WATER - 50 ML IVPB SCH (09:37)
[2019-11-06] MEDS: SACUBITRIL/VALSARTAN 24 MG-26 MG TABLET PO SCH ×2 (09:37→23:01)
[2019-11-06] MEDS: CARVEDILOL 12.5 MG TABLET (FP) PO SCH ×2 (09:37→21:03)
--- NOTE | 2019-11-06 11:34 | PN ---
Progress Note, Physician Chief Complaint: AWAKE IN BED APPEARS MORE COMFORTABLE OCCASIONAL DRY COUGH LESS DYSPNEIC ON EXERTION NO CHEST PAIN NO FEVER/ CHILLS AFEBRILE WBC WNL BC (-) SPUTUM NORMAL BRITTNEE LEGIONELLA AG(-) - Current Medication List Current Medications: Active Medications Carvedilol (Coreg -) 12.5 mg PO BID [facility] Last Admin: 11/06/19 09:37 Dose: 12.5 mg Documented by: Ceftriaxone Sodium 1 gm/ (Dextrose) 50 mls @ 100 mls/hr IVPB DAILY [facility]; Protocol Last Admin: 11/06/19 09:37 Dose: 100 mls/hr Documented by: Levalbuterol HCl (Xopenex) 0.31 mg IH RTID [facility] Last Admin: 11/06/19 08:36 Dose: 0.31 mg Documented by: Methylprednisolone Sodium Succinate (Solu-Medrol -) 40 mg IVPUSH Q8H-IV [facility] Last Admin: 11/06/19 09:37 Dose: 40 mg Documented by: Sacubitril/Valsartan (Entresto 24 Mg-26 Mg Tablet) 1 tab PO BID [facility] Last Admin: 11/06/19 09:37 Dose: 1 tab Documented by: Spironolactone (Aldactone -) 25 mg PO DAILY [facility] Last Admin: 11/06/19 09:37 Dose: 25 mg Documented by: - Objective Vital Signs: Vital Signs Temperature 98.6 F 11/06/19 09:35 Pulse Rate 107 H 11/06/19 09:35 Respiratory Rate 20 11/06/19 09:35 Blood Pressure 115/78 11/06/19 09:35 O2 Sat by Pulse Oximetry (%) 99 11/05/19 21:00 Constitutional: Yes: No Distress Cardiovascular: Yes: Regular Rate and Rhythm, S1, S2 Respiratory: Yes: Diminished Gastrointestinal: Yes: Normal Bowel Sounds, Soft. No: Tenderness Labs: CBC, BMP 11/05/19 10:40 11/05/19 10:40 INR, PTT INR 2.37 (0.83-1.09) H 11/05/19 10:40 Assessment/Plan RML,RLL [facility] ACQ V. ATYPICAL CLINICALLY IMPROVED FACTOR V LEIDEN CONTINUE EMPIRIC CEFTRIAXONE AIRBORNE PRECAUTIONS PULMONARY F/U
--- NOTE | 2019-11-06 12:41 | PN ---
Progress Note, Physician Chief Complaint: Events noted Feels better Tolerating therapy History of Present Illness: Patient was seen and examined. Awake and alert. Chart was reviewed Denies chest pain or palpitations Less dyspnea - Current Medication List Current Medications: Active Medications Carvedilol (Coreg -) 12.5 mg PO BID [facility] Last Admin: 11/06/19 09:37 Dose: 12.5 mg Documented by: Ceftriaxone Sodium 1 gm/ (Dextrose) 50 mls @ 100 mls/hr IVPB DAILY [facility]; Protoco l Last Admin: 11/06/19 09:37 Dose: 100 mls/hr Documented by: Levalbuterol HCl (Xopenex) 0.31 mg IH RTID [facility] Last Admin: 11/06/19 08:36 Dose: 0.31 mg Documented by: Methylprednisolone Sodium Succinate (Solu-Medrol -) 40 mg IVPUSH Q8H-IV [facility] Last Admin: 11/06/19 09:37 Dose: 40 mg Documented by: Sacubitril/Valsartan (Entresto 24 Mg-26 Mg Tablet) 1 tab PO BID [facility] Last Admin: 11/06/19 09:37 Dose: 1 tab Documented by: Spironolactone (Aldactone -) 25 mg PO DAILY [facility] Last Admin: 11/06/19 09:37 Dose: 25 mg Documented by: - Objective Vital Signs: Vital Signs Temperature 98.6 F 11/06/19 09:35 Pulse Rate 107 H 11/06/19 09:35 Respiratory Rate 20 11/06/19 09:35 Blood Pressure 115/78 11/06/19 09:35 O2 Sat by Pulse Oximetry (%) 99 11/06/19 09:00 Neck: Yes: Supple Cardiovascular: Yes: Tachycardia, S1, S2 Respiratory: Yes: CTA Bilaterally Gastrointestinal: Yes: Normal Bowel Sounds, Soft. No: Tenderness Edema: No Additional Findings/Remarks: - Review of Systems Constitutional: denies: Chills, Fever Cardiovascular: reports: Chest Pain, Shortness of Breath. denies: Palpitations Respiratory: reports: Cough, SOB. denies: Hemoptysis, Orthopnea, PND Gastrointestinal: denies: Abdominal Pain, Constipation, Diarrhea, Melena, Nausea, Rectal Bleeding, Vomiting Genitourinary: denies: Dysuria, Hematuria Musculoskeletal: denies: Back Pain, Joint Pain Neurological: reports: Weakness. denies: Dizziness, Headache, Seizure, Syncope Labs: CBC, BMP 11/05/19 10:40 11/05/19 10:40 INR, PTT INR 2.37 (0.83-1.09) H 11/05/19 10:40 Problem List - Problems (1) Sinus tachycardia Code(s): R00.0 - TACHYCARDIA, UNSPECIFIED (2) LBBB (left bundle branch block) Code(s): I44.7 - LEFT BUNDLE-BRANCH BLOCK, UNSPECIFIED (3) Factor V Leiden Code(s): D68.51 - ACTIVATED PROTEIN C RESISTANCE (4) Pneumonia Code(s): J18.9 - PNEUMONIA, UNSPECIFIED ORGANISM (5) Shortness of breath Code(s): R06.02 - SHORTNESS OF BREATH (6) Tightness in chest Code(s): R07.89 - OTHER CHEST PAIN (7) Dilated cardiomyopathy Code(s): I42.0 - DILATED CARDIOMYOPATHY Assessment/Plan 1. 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 Chest pain and shortness of breath suggests due to pulmonary infiltrates +/- severe pulmonary HTN 3. Factor V Leiden 4. History of multiple DVTs PLAN: 1. In view of above finding, plan is to proceed with cardiac catheterization including right and left heart cath at [facility] on Thursday. (tentatively) - time to be determined 2. Continue Carvedilol 12.5 mg BID and uptitrate. Continue Entresto 24/26 mg BID as tolerated and uptitrate. Continue Spironolactone 25 mg QD as tolerated. Monitor electrolytes 3. Continue Coumadin and monitor INR to keep in between 2-2.5. Cardiac catheterization will be done with INR in that range in view of high risk for thrombus formation. If INR is less than 2, start Heparin drip and monitor PTT. Coumadin to be dosed daily 4. Empiric antibiotics coverage 5. Eventually will need LifeVest and if LVEF does not improve, will need VALVE LAPPER-D implantation 6. Further work up including cardiac MRI can be done as outpatient Guarded Further plans are to follow Ok Allison MD
[2019-11-06 13:42] LABS: INR 2.19 (0.83-1.09)
[2019-11-06 13:45] LABS: ACTIVATED PTT 32.4 SECONDS (25.2-36.5)
--- NOTE | 2019-11-06 14:18 | PN ---
Progress Note (short form) - Note Progress Note: PULMONARY States breathing improved with steroid trial. No fevers. Occasional cough. Vital Signs Period Temp Pulse Resp BP Sys/Torres Pulse Ox Last 24 Hr 97.5 F-98.6 F 100-108 18-20 93-115/53-78 99-99 Gen: NAD at rest Heart: RRR Lung: decreased breath sounds at the bases Abd: soft, nontender Ext: no edema CBC, BMP 11/05/19 10:40 11/05/19 10:40 Active Medications Carvedilol (Coreg -) 12.5 mg PO BID [facility] Last Admin: 11/06/19 09:37 Dose: 12.5 mg Documented by: Ceftriaxone Sodium 1 gm/ (Dextrose) 50 mls @ 100 mls/hr IVPB DAILY [facility]; Keisha col Last Admin: 11/06/19 09:37 Dose: 100 mls/hr Documented by: Levalbuterol HCl (Xopenex) 0.31 mg IH RTID [facility] Last Admin: 11/06/19 08:36 Dose: 0.31 mg Documented by: Methylprednisolone Sodium Succinate (Solu-Medrol -) 40 mg IVPUSH Q8H-IV [facility] Last Admin: 11/06/19 09:37 Dose: 40 mg Documented by: Sacubitril/Valsartan (Entresto 24 Mg-26 Mg Tablet) 1 tab PO BID [facility] Last Admin: 11/06/19 09:37 Dose: 1 tab Documented by: Spironolactone (Aldactone -) 25 mg PO DAILY [facility] Last Admin: 11/06/19 09:37 Dose: 25 mg Documented by: A/P Pneumonia Factor V Leiden Severe LV Systolic Dysfunction Pulmonary HTN h/o DVT Suspect NATHALY - empiric antibiotics - O2 to keep SpO2 >90% - continue anticoagulation - short trial of medrol, can d/c in AM if remains improved - inhaled bronchodilators - aldactone - for cardiac catheterization
[2019-11-06] MEDS ORDERED: WARFARIN NA 10 MG TABLET PO ONE (18:00)
[2019-11-07] MEDS: methylPREDNISolone NA SUCC 40 MG/1 ML VIAL IVPUSH SCH (01:46)
[2019-11-07] MEDS: LEVALBUTEROL HCL 0.31 MG/3 ML VIAL.NEB IH SCH (08:02)
--- NOTE | 2019-11-07 08:15 | PN ---
Progress Note, Physician History of Present Illness: Underwent R&LHc at [facility] FINDINGS Dominance: Right dominant Left Main Normal Left Anterior Descending Normal Circumflex Normal RCA Normal LV FINDINGS: LVEDP: 23 mmHg Global Hypokinesis - Severe HEMODYNAMICS Time AIR REST ECG 09:10:33 ECG 10:06:06 PW /30 (23) PV 10:26:42 PA 37/18 (27) PA 10:26:59 PW /29 (27) 10:28:16 RV 44/1, 12 10:28:41 RA /14 (12) SV 10:29:03 AO 85/58 (67) SA 10:30:46 AO 84/59 (69) 10:31:12 LV 96/7, 26 10:39:01 LV 92/6, 23 10:39:10 LVp 92/4, 26 10:40:28 AOp 87/59 (71) 10:40:36 O2 Saturations: Label % O2 Pres/Loc Time AIR REST AO 91 PV 10:24:55 PA 56 PA 10:29:08 Aleksander CO: 5.5 Aleksander CI: 2.08 PVR: 58 TPVR: 393 SVR: 800 TSVR: 974 Resumed diuresis, cardiomyopathy meds and coumadin per INR 3.0-3.5 as hemodynamics tolerate. Awaiting Lifevest fitting. - Current Medication List Current Medications: Active Medications Carvedilol (Coreg -) 12.5 mg PO BID [facility] Last Admin: 11/06/19 21:03 Dose: 12.5 mg Documented by: Ceftriaxone Sodium 1 gm/ (Dextrose) 50 mls @ 100 mls/hr IVPB DAILY [facility]; Protocol Last Admin: 11/06/19 09:37 Dose: 100 mls/hr Documented by: Levalbuterol HCl (Xopenex) 0.31 mg IH RTID [facility] Last Admin: 11/07/19 08:02 Dose: 0.31 mg Documented by: Methylprednisolone Sodium Succinate (Solu-Medrol -) 40 mg IVPUSH Q8H-IV [facility] Last Admin: 11/07/19 01:46 Dose: 40 mg Documented by: Sacubitril/Valsartan (Entresto 24 Mg-26 Mg Tablet) 1 tab PO BID [facility] Last Admin: 11/06/19 23:01 Dose: 1 tab Documented by: Spironolactone (Aldactone -) 25 mg PO DAILY [facility] Last Admin: 11/06/19 09:37 Dose: 25 mg Documented by: - Objective Vital Signs: Vital Signs Temperature 97.7 F 11/07/19 05:00 Pulse Rate 113 H 11/07/19 05:00 Respiratory Rate 20 11/07/19 05:00 Blood Pressure 112/70 11/07/19 05:00 O2 Sat by Pulse Oximetry (%) 99 11/06/19 21:00 Labs: CBC, BMP 11/05/19 10:40 11/05/19 10:40 INR, PTT INR 2.19 (0.83-1.09) H 11/06/19 11:48 Problem List - Problems (1) Acute on chronic systolic (congestive) heart failure Code(s): I50.23 - ACUTE ON CHRONIC SYSTOLIC (CONGESTIVE) HEART FAILURE Assessment/Plan 11/02/2019 Echo: Moderately dilated with severely decreased LVEF 25%, normal RV size and fxn, mild LAE, mod MR, mild-mod TR, RVSP 62 mmHg, mild MO, tr-mild AR. 1. 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 Chest pain and shortness of breath suggests due to pulmonary infiltrates +/- severe pulmonary HTN 3. Factor V Leiden 4. History of multiple DVTs PLAN: 1. In view of above finding, plan is to proceed with cardiac catheterization including right and left heart cath at [facility] on Thursday. (tentatively) - time to be determined 2. Continue Carvedilol 12.5 mg BID and uptitrate. Continue Entresto 24/26 mg BID as tolerated and uptitrate. Continue Spironolactone 25 mg QD as tolerated. Monitor electrolytes 3. Continue Coumadin and monitor INR to keep in between 2-2.5. Cardiac catheterization will be done with INR in that range in view of high risk for thrombus formation. If INR is less than 2, start Heparin drip and monitor PTT. Coumadin to be dosed daily 4. Empiric antibiotics coverage 5. Eventually will need LifeVest and if LVEF does not improve, will need OIL WELL GUN PERFORATOR OPERATOR-D implantation 6. Further work up including cardiac MRI can be done as outpatient
--- NOTE | 2019-11-07 08:46 | PN ---
Progress Note, Physician Chief Complaint: Patient seen and examined at the bedside, no acute events from last night, intermittent shortness of breath, scheduled for coronary angiogram today. History of Present Illness: This 39 yr old w/m with PMH of Factor V Leiden, >10x DVT of the left lower leg admitted via ER with an acute shortness of breath, acute tightness in the chest, dry cough, EF 25%, acute pulmonary vascular congestion, and an acute pneumonia. - Current Medication List Current Medications: Active Medications Carvedilol (Coreg -) 12.5 mg PO BID [facility] Last Admin: 11/06/19 21:03 Dose: 12.5 mg Documented by: Ceftriaxone Sodium 1 gm/ (Dextrose) 50 mls @ 100 mls/hr IVPB DAILY [facility]; Protocol Last Admin: 11/06/19 09:37 Dose: 100 mls/hr Documented by: Levalbuterol HCl (Xopenex) 0.31 mg IH RTID [facility] Last Admin: 11/07/19 08:02 Dose: 0.31 mg Documented by: Methylprednisolone Sodium Succinate (Solu-Medrol -) 40 mg IVPUSH Q8H-IV [facility] Last Admin: 11/07/19 01:46 Dose: 40 mg Documented by: Sacubitril/Valsartan (Entresto 24 Mg-26 Mg Tablet) 1 tab PO BID [facility] Last Admin: 11/06/19 23:01 Dose: 1 tab Documented by: Spironolactone (Aldactone -) 25 mg PO DAILY [facility] Last Admin: 11/06/19 09:37 Dose: 25 mg Documented by: - Objective Vital Signs: Vital Signs Temperature 97.7 F 11/07/19 05:00 Pulse Rate 113 H 11/07/19 05:00 Respiratory Rate 20 11/07/19 05:00 Blood Pressure 112/70 11/07/19 05:00 O2 Sat by Pulse Oximetry (%) 99 11/06/19 21:00 Constitutional: Yes: Well Nourished, No Distress, Calm Eyes: Yes: Conjunctiva Clear, EOM Intact HENT: Yes: Atraumatic, Normocephalic Neck: Yes: Supple, Trachea Midline Cardiovascular: Yes: Regular Rate and Rhythm, Tachycardia Respiratory: Yes: Regular, CTA Bilaterally, SOB, SOB on Exertion Gastrointestinal: Yes: Normal Bowel Sounds, Soft ...Rectal Exam: Yes: Deferred Genitourinary: Yes: WNL Breast(s): Yes: WNL Musculoskeletal: Yes: WNL Extremities: Yes: WNL Edema: Yes Edema: LLE: Trace, RLE: 1+ Peripheral Pulses WNL: Yes Integumentary: Yes: WNL Neurological: Yes: WNL ...Motor Strength: WNL Psychiatric: Yes: WNL Labs: CBC, BMP 11/05/19 10:40 11/05/19 10:40 INR, PTT INR 2.19 (0.83-1.09) H 11/06/19 11:48 - ....Imaging Other: Report Reviewed (lab data reviewed) Problem List - Problems (1) Tightness in chest Code(s): R07.89 - OTHER CHEST PAIN (2) Dry cough Code(s): R05 - COUGH (3) Factor V Leiden Code(s): D68.51 - ACTIVATED PROTEIN C RESISTANCE (4) Left leg DVT Code(s): I82.402 - ACUTE EMBOLISM AND THOMBOS UNSP DEEP VEINS OF L LOW EXTREM (5) Atrial flutter with rapid ventricular response Code(s): I48.92 - UNSPECIFIED ATRIAL FLUTTER (6) Pneumonia Code(s): J18.9 - PNEUMONIA, UNSPECIFIED ORGANISM (7) Shortness of breath Code(s): R06.02 - SHORTNESS OF BREATH Assessment/Plan Assessment/plan: acute tachyarrhythmia, acute shortness of breath, acute tightness in the chest, acute pulmonary vascular congestion, acute pneumonia, >10 DVT of the left lower leg, EF 25%, moderate MR, moderate TR, sinus tachycardia with underlying LBBB (NEW) with dilated idiopathic cardiomyopathy with severe LV systolic dysfunction and LV failure; a/c with warfarin, IV Cefriaxone as per ID, Levalbuterol, Coreg, Sacubitril/Valsartan, Spironolactone, IV methylprednisolone, scheduled for cardiac catheterization today.
--- NOTE | 2019-11-07 10:14 | EKG ---
Test Reason : Blood Pressure : / mmHG Vent. Rate : 119 BPM Atrial Rate : 119 BPM P-R Int : 144 ms QRS Dur : 148 ms QT Int : 354 ms P-R-T Axes : 070 246 036 degrees QTc Int : 497 ms SINUS TACHYCARDIA POSSIBLE LEFT ATRIAL ENLARGEMENT NON-SPECIFIC INTRA-VENTRICULAR CONDUCTION BLOCK POSSIBLE LATERAL INFARCT , AGE UNDETERMINED ABNORMAL ECG WHEN COMPARED WITH ECG OF 01-NOV-2019 02:51, No significant changes Confirmed by Amalia Feldman ([id number]) on 11/07/2019 10:13:45 AM Referred By: Confirmed By:Amalia Feldman
[2019-11-07 11:55] VITALS: BP 111/75; PULSE 112; TEMP 97.5
--- NOTE | 2019-11-07 17:54 | DS ---
Physical Examination Vital Signs: Vital Signs Temperature 97.5 F L 11/07/19 08:00 Pulse Rate 112 H 11/07/19 08:00 Respiratory Rate 18 11/07/19 08:00 Blood Pressure 111/75 11/07/19 08:00 O2 Sat by Pulse Oximetry (%) 99 11/07/19 08:00 Constitutional: Yes: Well Nourished, No Distress, Calm Eyes: Yes: Conjunctiva Clear, EOM Intact HENT: Yes: Atraumatic, Normocephalic Neck: Yes: Supple, Trachea Midline Cardiovascular: Yes: Regular Rate and Rhythm Respiratory: Yes: Regular, CTA Bilaterally Gastrointestinal: Yes: Normal Bowel Sounds, Soft ...Rectal Exam: Yes: Deferred Breast(s): Yes: WNL Musculoskeletal: Yes: WNL Extremities: Yes: WNL Edema: Yes Edema: LLE: 1+ Peripheral Pulses WNL: Yes Integumentary: Yes: WNL Neurological: Yes: WNL ...Motor Strength: WNL Psychiatric: Yes: WNL Labs: CBC, BMP 11/05/19 10:40 11/05/19 10:40 Discharge Summary Problems reviewed: Yes Reason For Visit: SOB Condition: Guarded - Instructions Diet, Activity, Other Instructions: EF 10%, coronary angiogram normal. Continue present meds. Activity as tolerated. Follow up with Dr. Rosas within one week. Total time spent over 30 minutes. Disposition: TRANSFER ACUTE CARE/OTHER HOSP - Home Medications Comprehensive Discharge Medication List: Ambulatory Orders Warfarin Sodium [Coumadin] 12 mg PO DAILY 03/08/12 Multivitamin [Multivitamins] 1 each PO DAILY 10/26/12
== END 2019-11-07 08:30 | disposition short-term general hospital (02) | DRG 291 ==
LOC: JER 13:15 → JERBED 17:53 → J4S 11-01 20:52 → UNDODISIN 11-05 11:55
PROVIDERS: ADMIT Internal Medicine; ATTEND Internal Medicine
DX: I50.23 Acute on chronic systolic (congestive) heart failure (principal); J18.9 Pneumonia, unspecified organism; I42.0 Dilated cardiomyopathy; D68.51 Activated protein C resistance; I48.92 Unspecified atrial flutter; I27.20 Pulmonary hypertension, unspecified; R07.9 Chest pain, unspecified; E66.9 Obesity, unspecified; Z68.39 Body mass index [BMI] 39.0-39.9, adult; I44.7 Left bundle-branch block, unspecified; R00.0 Tachycardia, unspecified
CPT/HCPCS: 36415; 71045-TC-FY; 71275-TC; 80053; 80307; 81003; 82550; 82728; 83615; 83735; 83880; 84100; 84443; 84484; 85025; 85379; 85610; 85730; 86140; 87040; 87070; 87205; 87899; 93005; 93010; 93306-TC; 99285-25; Q9967; U0003